=== PATIENT | male | born 2005 | race Caucasian/White ===

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

== ENCOUNTER 2024-06-18 11:17 | Outpatient (AMB) | payer OTHER, SELFPAY ==
--- NOTE | 2024-06-18 11:26 | A.OFFPC_ITS ---
Vital Signs 06/18/24 11:28 Height 5 ft 11 in Weight 179 lb 4 oz BMI 25.0 BP 114/66 Blood Pressure Location Rt brachial Position Sitting Respiration 12 Pulse 78 Pulse Source Pulse Oximeter Pulse Oximetry (%) 97 Oxygen Delivery Method Room Air Intake Visit Reasons: Annual pe Intake Note: annual physical Tennis Court Attendant Required: No Allergies No Known Allergies Allergy (Verified 06/18/24 11:50) Medication List - Last Reconciled 06/18/24 by Shadia Borrego, [facility]- citalopram 20 mg PO DAILY 90 days Tobacco use date assessed: 11/26/23 Dental Screening Dental Screen Date: 11/26/23 HPI HPI Comments History of Present Illness Details 19 y/o M with JOSE, MDD, ADHD, Cold james tamera asthma Social: living at home with family; drives, wears seat belt. Works with [employer] SurgHx: None FHx: Mom: Anxiety. Dad: Anxiety. Sister: Anxiety. SocHx: Nonsmoker. EtOH None. No drugs Health maintenance tdap 2015 Declined flu Here today for CPE Optho glasses, eye exam in the last year. Just got new Rx. Hearing normal w/o aides Diet - reports normal Exercise regular History of Present Illness The patient is a 19-year-old male presenting with a complete physical examination. The patient has a documented history of anxiety, depression, Attention Deficit Hyperactivity Disorder (ADHD), and asthma that is precipitated by cold exposure. The patient's anxiety and depression are well controlled On celexa. No counseling, does not feel its needed. Additionally, the patient experiences asthma triggered by cold exposure, stable. ADHD well controlled w/o meds. ROS Sexually active in the past; no concerns for STDs; does self testicular exam; no concerns. Edu provided No concerns w/ skin. General: Well developed, well nourished, in no acute distress. Appears stated age. Head: Normocephalic, atraumatic. Eyes: Pupils are equal, round and reactive to light and accommodation. Conjunctivae are clear. Vision grossly normal. Ears: TMs clear AU, EACS WNL Nose: Patent, without discharge. Mouth: There are no ulcers or lesions noted. No inflammation, no post nasal drip, no plaques nor exudates. Neck: Supple, no adenopathy or thyromegaly. Lungs: Clear to auscultation bilaterally. No rales, rhonchi or wheeze noted. Good air flow in all peters. Heart: Regular rate and rhythm. No murmurs, click, rubs or gallops are noted. Abdomen: Bowel sounds present in all quadrants. The abdomen is soft, nontender, with no masses or organomegaly noted. No hernias are noted. Musculoskeletal: Joints are nontender, without swelling, redness, or effusions. Range of motion is observed to be normal. Pulses: Peripheral pulses are equal and palpable bilaterally. Extremities: No clubbing, cyanosis nor edema is noted. Neurologic: Gait and station normal. Cranial Nerves 2-[address] rength grossly symmetrical and intact. No sensory loss. Balance normal. Skin: No rashes, ulcers, or lesions noted. Turgor is good. Skin color is good. Hair and nails are without abnormalities. Psych: Normal eye contact, affect and mood appropriate, and normal interactions. Patient is alert and appropriate to context. Patient was informed and verbally consented to the use of an ambient scribe for clinic note documentation during this visit. Plan: screening labs today RTO 1 year for CPE, sooner PRN PFSH Medical History (Updated 06/18/24 @ 15:33 by Shadia Borrego, [facility]) Asthma Surgical History (Updated 11/26/23 @ 15:10 by Phuong Flowers CMA) No pertinent past surgical history Family History (Updated 11/26/23 @ 15:11 by Phuong Flowers CMA) Father Mental health disorder Social History (Updated 11/26/23 @ 15:14 by Phuong Flowers CMA) Household Members: Family Both parents involved: Yes Caregiver staying overnight: No Housing: House Are you a primary critical care transport nurse to a significant other at home: No Do you presently have visiting nurse or other home services: No 75 years or older and lives alone: No Alcohol intake: never Patient Tobacco Use Status: Never used Tobacco Tobacco use type: Cigarette e-Cigarette/Vaping Use: Never Used Agree to transfusion: No service: No Current occupational status: employed Current occupation: works at [employer]. Cognitive needs: No Hearing needs: No Vision needs: No Questionnaire PHQ-9 Over the last 2 weeks, how often have you been bothered by any of the following problems? 1. Little interest or pleasure in doing things: not at all 2. Feeling down, depressed, or hopeless: not at all 3. Trouble falling or staying asleep, or sleeping too much: several days 4. Feeling tired or having little energy: more than half the days 5. Poor appetite or overeating: not at all 6. Feeling bad about yourself - or that you are a failure or have let yourself or your family down: not at all 7. Trouble concentrating on things, such as reading the newspaper or watching television: more than half the days 8. Moving or speaking so slowly that other people could have noticed. Or the opposite - being so fidgety or restless that you have been moving around a lot more than usual: more than half the days 9. Thoughts that you would be better off or of hurting yourself in some way: not at all Total score: 7 Depression Screening Interpretation: Positive Depression Screening Follow-up: Existing condition Depression Screening Done: Yes [id number] - PHQ-9 Billing: Yes Source: Developed by Drs. Giancarlo Emery, Marta Watson, Evangelist Schofield and colleagues, with an educational jacinda from [employer]. Thrive Questionnaire Date Thrive assessed: 06/18/24 I am a: Patient What is your living situation today?: I have a steady place to live Within the past 12 months, did the food you bought not last and you didn't have the money to get more?: Never true Within the past 12 months, did you worry whether your food would run out before you got money to buy more?: Never true Do you have trouble paying for medicines?: I choose not to answer this question Do you have trouble getting transportation to medical appointments?: No Do you have trouble paying your heating and electricity bill?: I choose not to answer this question Do you have trouble taking care of your child, family member or friend?: I choose not to answer this question Do you have trouble with day-to-day activities such as bathing, preparing meals, shopping, managing finances, etc.?: I choose not to answer this question Are you currently unemployed and looking for a job?: I choose not to answer this question Are you interested in more education?: I choose not to answer this question Please select the resources that you would like help with: None Currently or been in a relationship where the following occur: I choose not to answer THRIVE Score: 0 AUDIT C Alcohol Use Questionnaire (AUDIT-C) 1. How often do you have a drink containing alcohol?: Never Total Score: 0 Score Reviewed/Action Taken: Yes JOSE-7 AMB Questionnaire JOSE-7 Date JOSE - 7 assessed: 06/18/24 Feeling nervous, anxious, or on edge: 1 = Several days Not being able to stop or control worryin = Several days Worrying too much about different things: 1 = Several days Trouble relaxin = Several days Being so restless that it is hard to sit still: 1 = Several days Becoming easily annoyed or irritable: 1 = Several days Feeling afraid as if something awful might happen: 1 = Several days Total JOSE-7 score (0-4 normal; 5-9 mild; 10-14 moderate; 15-21 severe): 7 Source: Developed by Drs. Giancarlo Emery, Marta Watson, Evangelist Schofield and colleagues, with an educational jacinda from [employer]. JOSE-7 Assessment Billing JOSE-7 Assessment Tool: JOSE-7 Assessment 24780 Physical exam (Primary Care) Vital Signs: Last Vital Signs Pulse 78 06/18/24 11:28 Resp 12 06/18/24 11:28 BP 114/66 06/18/24 11:28 Pulse Ox 97 06/18/24 11:28 Oxygen Delivery Method Room Air 06/18/24 11:28 BMI result Body Mass Index 25.0 Tobacco/Smoking Status: Tobacco use Status Tobacco use date assessed 11/26/23 06/18/24 11:26 Patient Tobacco Use Status Never used Tobacco 06/18/24 11:26 Tobacco use type Cigarette 06/18/24 11:26 e-Cigarette/Vaping Use Never Used 06/18/24 11:26 PHQ-9: PHQ-9 Score PHQ-9: Total score 7 06/18/24 11:53 Depression Screening Interpretation: Positive Depression Screening Follow-up: Existing condition Thrive Assessment: Date of Thrive Assessment Date Thrive assessed 06/18/24 06/18/24 11:30 Currently or been in a relationship where the following occur: I choose not to answer Coding Level of Care Code Est Pt Prev Care 18-39y(34238) Diagnoses Encounter for general adult medical examination without abnormal findings Z00.00 Laboratory exam ordered as part of routine general medical examination Z00.00 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 J45.20 Asthma severity: mild Asthma persistence: intermittent Asthma complication type: uncomplicated Anxiety with depression F41.8 Attention deficit hyperactivity disorder (ADHD), combined type F90.2 Attention deficit-hyperactivity disorder type: combined inattentive- hyperactive Encounter for screening examination for sexually transmitted disease Z11.3 Additional Codes JOSE-7 Assessment Billing - JOSE-7 Assessment Tool: JOSE-7 Assessment 31025 ([id number]) PHQ-9 - 45614 - PHQ-9 Billing: Yes ([id number]) Assessment & Plan Assessment & Plan (1) Encounter for general adult medical examination without abnormal findings: Code(s): Z00.00 - Encounter for general adult medical examination without abnormal findings (2) Laboratory exam ordered as part of routine general medical examination: Code(s): Z00.00 - Encounter for general adult medical examination without abnormal findings Category: Medical (3) Cold-induced asthma: Code(s): J45.909 - Unspecified asthma, uncomplicated Category: Medical Qualifiers: Asthma severity: mild Asthma persistence: intermittent Asthma complication type: uncomplicated Qualified Code(s): J45.20 - Mild intermittent asthma, uncomplicated (4) Anxiety with depression: Code(s): F41.8 - Other specified anxiety disorders Category: Medical (5) ADHD: Code(s): F90.9 - Attention-deficit hyperactivity disorder, unspecified type Category: Medical Qualifiers: Attention deficit-hyperactivity disorder type: combined inattentive- hyperactive Qualified Code(s): F90.2 - Attention-deficit hyperactivity disorder, combined type (6) Encounter for screening examination for sexually transmitted disease: Code(s): Z11.3 - Encounter for screening for infections with a predominantly sexual mode of transmission Plan . Orders: Orders CT NG by PCR Today Z11.3 - Encounter for screening for infections with a predo minantly sexual mode of transmission UA and rflx microscopic Today Z00.00 - Encounter for general adult medical examination without abnormal findings Comprehensive Met. Panel Today Z00.00 - Encounter for general adult medical examination without abnormal findings Patient Instructions: Health screenings for men You should visit your health care provider regularly, even if you feel healthy. The purpose of these visits is to: Screen for medical issues Assess your risk for future medical problems Encourage a healthy lifestyle Update vaccinations and other preventive care services Help you get to know your provider in case of an illness Information Even if you feel fine, you should still see your provider for regular checkups. These visits can help you avoid problems in the future. For example, the only way to find out if you have high blood pressure is to have it checked regularly. High blood sugar and high cholesterol level also may not have any symptoms in the early stages. Simple blood tests can check for these conditions. There are specific times when you should see your provider or receive specific health screenings. The [place] Preventive Services Task Force publishes a list of recommended screenings. Below are screening guidelines for men ages 40 to 64. BLOOD PRESSURE SCREENING Have your blood pressure checked at least once every year. Watch for blood pressure screenings in your area. Ask your provider if you can stop in to have your blood pressure checked. Ask your provider if you need your blood pressure checked more often if: You have diabetes, heart disease, kidney problems, or are overweight or have certain other health conditions You have a first-degree relative with high blood pressure You are Black Your blood pressure top number is from 120 to 129 mm Hg, or the bottom number is from 70 to 79 mm Hg If the top number is 130 mm Hg or greater or the bottom number is 80 mm Hg or greater, this is considered stage 1 hypertension. Schedule an appointment with your provider to learn how you can lower your blood pressure. Effects of age on blood pressure CHOLESTEROL SCREENING Cholesterol screening should begin at age 35 for men with no known risk factors for coronary heart disease. Repeat cholesterol screening should take place: Every 5 years for men with normal cholesterol levels More often if changes occur in lifestyle (including weight gain and diet) More often if you have diabetes, heart disease, kidney problems, or certain other conditions COLORECTAL CANCER SCREENING If you are under age 45, talk to your provider about getting screened. You may need to be screened if you have a strong family history of colon cancer or polyps. Screening may also be considered if you have risk factors such as a history of inflammatory bowel disease or polyps. If you are age 45 to 75, you should be screened for colorectal cancer. There are several screening tests available: A stool-based fecal occult blood (gFOBT) or fecal immunochemical test (FIT) every year A stool sDNA test every 1 to 3 years Flexible sigmoidoscopy every 5 years or every 10 years with stool testing FIT done every year CT colonography (virtual colonoscopy) every 5 years Colonoscopy every 10 years You may need a colonoscopy more often if you have risk factors for colorectal cancer, such as: Ulcerative colitis A personal or family history of colorectal cancer A history of growths in your colon called adenomatous polyps DENTAL EXAM Go to the dentist once or twice every year for an exam and cleaning. Your dentist will evaluate if you have a need for more frequent visits. DIABETES SCREENING All adults who do not have risk factors for diabetes should be screened starting at age 35 and repeated every 3 years. If you have other risk factors for diabetes, such as a first degree relative with diabetes, overweight or obesity, high blood pressure, prediabetes, or a history of heart disease, you may be tested more often. If you are overweight and have other risk factors, such as high blood pressure and are planning to become , screening is recommended. EYE EXAM Have an eye exam every 2 to 4 years ages 40 to 54 and every 1 to 3 years ages 55 to 64. Your provider may recommend more frequent eye exams if you have vision problems or glaucoma risk. Have an eye exam that includes an examination of your retina (back of your eye) at least every year if you have diabetes. IMMUNIZATIONS Commonly needed vaccines include: Flu shot: get one every year COVID-19 vaccine: ask your provider what is best for you Tetanus-diphtheria and acellular pertussis (Tdap) vaccine: have as one of your tetanus-diphtheria vaccines if you did not receive it as an adolescent Tetanus-diphtheria: have a booster (or Tdap) every 10 years Varicella vaccine: receive 2 doses if you never had chickenpox or the varicella vaccine and were born in 1979 or after Hepatitis B vaccine: receive 2, 3, or 4 doses, depending on your exact circumstances, if you did not receive these as a child or adolescent, until age 59 Shingles (herpes zoster) vaccine: at or after age 50 Ask your provider if you should receive other immunizations, especially if you have certain medical conditions, such as diabetes or are at increased risk for some diseases such as pneumonia. INFECTIOUS DISEASE SCREENING Screening for hepatitis C: all adults ages 18 to 79 should get a one-time test for hepatitis C. Screening for human immunodeficiency virus (HIV): all people ages 15 to 65 should get a one-time test for HIV. Depending on your lifestyle and medical history, you may need to be screened for infections such as syphilis, chlamydia, and other infections. LUNG CANCER SCREENING You should have an annual screening for lung cancer with low-dose computed tomography (LDCT) if: You are age 50 to 80 years AND You have a 20 pack-year smoking history AND You currently smoke or have quit within the past 15 years OSTEOPOROSIS SCREENING If you are age 50 to 64 and have risk factors for osteoporosis, you should discuss screening with your provider. Risk factors can include long-term steroid use, low body weight, smoking, heavy alcohol use, having a fracture after age 50, or a family history of hip fracture or osteoporosis. Osteoporosis PHYSICAL EXAM All adults should visit their provider from time to time, even if they are healthy. The purpose of these visits is to: Screen for diseases Assess risk of future medical problems Encourage a healthy lifestyle Update vaccinations and other preventive care services Maintain a relationship with a provider in case of an illness Your height, weight, and body mass index (BMI) should be checked at every exam. During your exam, your provider may ask you about: Depression and anxiety Diet and exercise Alcohol and tobacco use Safety, such as use of seat belts and smoke detectors Your medicines and risk for interactions PROSTATE CANCER SCREENING If you're 55 through 69 years old, before having the test, talk to your provider about the pros and cons of having a PSA test. Ask about: Whether screening decreases your chance of dying from prostate cancer. Whether there is any harm from prostate cancer screening, such as side effects from testing or overtreatment of cancer when discovered. Whether you have a higher risk of prostate cancer than others. If you are age 55 or younger, screening is not generally recommended. You should talk with your provider about if you have a higher risk for prostate cancer. Risk factors include: Having a family history of prostate cancer (especially a brother or father) Being If you choose to be tested, the PSA blood test is repeated over time (yearly or less often), though the best frequency is not known. Prostate examinations are no longer routinely done on men with no symptoms. Prostate cancer SKIN EXAM Your provider may check your skin for signs of skin cancer, especially if you're at high risk. People at high risk include those who have had skin cancer before, have close relatives with skin cancer, or have a weakened immune system. TESTICULAR EXAM The [place] Preventive Services Task Force (USPSTF) now recommends against performing testicular self-exams. Doing testicular self-exams has been shown to have little to no benefit.
[2024-06-18 11:28] VITALS: BP 114/66; PULSE 78; RESP 12; O2SAT 97; BMI 25.0
== END 2024-06-18 12:05 | disposition home or self-care (01) ==
PROVIDERS: PCP Family Medicine; Visit Provider Nurse Practitioner Family
DX: Z00.00 Encounter for general adult medical examination without abnormal findings (principal); J45.20 Mild intermittent asthma, uncomplicated; F41.8 Other specified anxiety disorders; F90.2 Attention-deficit hyperactivity disorder, combined type; Z11.3 Encounter for screening for infections with a predominantly sexual mode of transmission

== ENCOUNTER 2024-06-18 11:17 | Outpatient (REF) | payer OTHER, SELFPAY ==
[2024-06-18 15:08] LABS: Appearance Urine Clear; Color Urine Yellow; Glucose Urine UA Negative (Negative); Leukocyte Esterase Urine Negative (Negative); Nitrite Urine Negative (Negative); Urine Blood Negative (Negative); Urine Ketones Negative (Negative); Urine Protein Negative (Neg-Trace)
[2024-06-18 21:52] LABS: CT PCR NOT DETECTED (Not Detect.); NG PCR NOT DETECTED (Not Detect.)
== END 2024-06-18 11:18 | disposition home or self-care (01) ==
LOC: HO.LAB 11:17
PROVIDERS: PCP Family Medicine; Visit Provider Nurse Practitioner Family
DX: Z00.00 Encounter for general adult medical examination without abnormal findings (principal); Z11.3 Encounter for screening for infections with a predominantly sexual mode of transmission; J45.20 Mild intermittent asthma, uncomplicated; F41.8 Other specified anxiety disorders; F90.2 Attention-deficit hyperactivity disorder, combined type
CPT/HCPCS: 81003; 87491; 87591; 96127; 99395

== ENCOUNTER 2024-06-26 08:58 | Outpatient (AMB) | payer OTHER, SELFPAY ==
--- NOTE | 2024-06-26 09:06 | A.OFFPC_ITS ---
Vital Signs 06/26/24 09:09 Height 5 ft 11 in Weight 180 lb BMI 25.1 BP 120/66 Blood Pressure Location Lt brachial Position Sitting Respiration 12 Pulse 81 Pulse Source Pulse Oximeter Temp 97.3 F Temp Source Oral Pulse Oximetry (%) 99 Oxygen Delivery Method Room Air Intake Visit Reasons: broken clavical f/u (wanted to be seen sooner) Intake Note: ER discharge follow up Hydrometeorological Technician Required: No Allergies No Known Allergies Allergy (Verified 06/26/24 09:51) Tobacco use date assessed: 06/26/24 Dental Screening Dental Screen Date: 11/26/23 HPI HPI Comments History of Present Illness Details History of Present Illness The patient is a 19-year-old male presenting with a mid shaft right clavicular fracture. The fracture occurred on June 23 after the patient had a fall while snowboarding. He was evaluated in the emergency room on June 23, where the fracture was diagnosed. At that time, the injury was deemed non- displaced, and surgical intervention was not required. He was discharged with his arm in a sling and advised to follow up with orthopedics. The patient reports persistent pain, which he describes as improving slightly, though it remains uncomfortable. Initial management included immobilization in a sling, and he was advised to limit arm movement to prevent displacement of the fracture. He has been adhering to these recommendations to the best of his ability but acknowledges occasional movement. He also mentions experiencing pain in the chest area, particularly in the early days following the injury, though this has since improved. Using OTC APAP and NSAIDS to help w/ pain, short lived relief. Exam Awake alert NAD Right arm neurovasc intact; pain over mid clavicle with palpation; no costocondral tenderness LS CTAB Results - X-ray: Confirmed non-displaced mid sha ft fracture of the right clavicle Plan - Refer to orthopedic for further evalua tion of right clavicle fracture. - Recommend walk-in clinic or formal orthopedic referral to [facility]. Go today. - Advise continuation of sling use to pr event displacement of the fracture. - Prescribe pain management medication w ithin NSAID family for pain relief. Patient was informed and verbally consented to the use of an ambient scribe for clinic note documentation during this visit. Discussion Notes During this visit, I discussed with the patient the nature of his mid shaft right clavicular fracture, emphasizing the importance of maintaining immobilization to prevent displacement. I offered him a prescription for pain management, specifying that while it is not ibuprofen, it is in the same family of medications, and clarified that he should not combine this with bngr-sll-htedsis ibuprofen. I recommended visiting a walk-in orthopedic clinic to expedite assessment and management. I provided the patient with an x-ray copy and explained that it would be advantageous for his orthopedic evaluation. We reviewed the necessity of continuity with a local orthopedic group for optimized care. I concluded by addressing any concerns and affirmed the potential for recovery without surgical intervention, advising consistent follow-up with orthopedics. Patient Instructions - Continue to use the sling to support y our right arm and prevent movement. - Avoid taking ibuprofen while using the prescribed pain medication. - Go to [facility]?s walk-in cli fernando for faster assessment. - Maintain follow-up appointments with o rthopedics as advised. - Monitor for any new symptoms or increa sed pain, and seek reevaluation if necessary. Total time spent caring for the patient today was 30 minutes. This includes time spent before the visit reviewing the chart, time spent during the visit, and time spent after the visit on documentation, reviewing laboratory results, diagnostic imaging, medications, performing a medically necessary evaluation, counseling on diagnoses, care coordination, ordering appropriate tests, ordering appropriate medications, review of tests performed by other providers, reporting test results with the patient, communication with other healthcare providers. [facility] Medical History (Updated 06/26/24 @ 11:24 by Shadia Borrego, [facility]) Asthma Surgical History (Updated 11/26/23 @ 15:10 by Phuong Flowers [facility]) No pertinent past surgical history Family History (Updated 11/26/23 @ 15:11 by Phuong Flowers CMA) Father Mental health disorder Social History (Updated 11/26/23 @ 15:14 by Phuong Flowers CMA) Household Members: Family Both parents involved: Yes Caregiver staying overnight: No Housing: House Are you a primary health care facility administrator to a significant other at home: No Do you presently have visiting nurse or other home services: No 75 years or older and lives alone: No Alcohol intake: never Patient Tobacco Use Status: Never used Tobacco Tobacco use type: Cigarette e-Cigarette/Vaping Use: Never Used Agree to transfusion: No service: No Current occupational status: employed Current occupation: works at [employer]. Cognitive needs: No Hearing needs: No Vision needs: No Questionnaire PHQ-9 Over the last 2 weeks, how often have you been bothered by any of the following problems? 44444 - PHQ-9 Billing: Patient declined-do not bill Source: Developed by Drs. Giancarlo Emery, Marta Watson, Evangelist Schofield and colleagues, with an educational jacinda from [employer]. Thrive Questionnaire Date Thrive assessed: 06/26/24 I am a: Patient What is your living situation today?: I have a steady place to live Within the past 12 months, did the food you bought not last and you didn't have the money to get more?: Never true Within the past 12 months, did you worry whether your food would run out before you got money to buy more?: Never true Do you have trouble paying for medicines?: I choose not to answer this question Do you have trouble getting transportation to medical appointments?: No Do you have trouble paying your heating and electricity bill?: I choose not to answer this question Do you have trouble taking care of your child, family member or friend?: I choose not to answer this question Do you have trouble with day-to-day activities such as bathing, preparing meals, shopping, managing finances, etc.?: I choose not to answer this question Are you currently unemployed and looking for a job?: I choose not to answer this question Are you interested in more education?: I choose not to answer this question Please select the resources that you would like help with: None Currently or been in a relationship where the following occur: I choose not to answer THRIVE Score: 0 JOSE-7 AMB Questionnaire JOSE-7 Date JOSE - 7 assessed: 06/18/24 Source: Developed by Drs. Giancarlo Emery, Marta Watson, Evangelist Schofield and colleagues, with an educational jacinda from [employer]. Physical exam (Primary Care) Vital Signs: Last Vital Signs Temp 97.3 F 06/26/24 09:09 Pulse 81 06/26/24 09:09 Resp 12 06/26/24 09:09 BP 120/66 06/26/24 09:09 Pulse Ox 99 06/26/24 09:09 Oxygen Delivery Method Room Air 06/26/24 09:09 BMI result Body Mass Index 25.1 Tobacco/Smoking Status: Tobacco use Status Tobacco use date assessed 06/26/24 06/26/24 09:08 Patient Tobacco Use Status Never used Tobacco 06/26/24 09:08 Tobacco use type Cigarette 06/26/24 09:08 e-Cigarette/Vaping Use Never Used 06/26/24 09:08 Thrive Assessment: Date of Thrive Assessment Date Thrive assessed 06/26/24 06/26/24 09:08 Currently or been in a relationship where the following occur: I choose not to answer Coding Level of Care Code Est Pt Level 4 (46021) Complex EM visit Add On G2211 Diagnoses Hospital discharge follow-up Z09 Closed nondisplaced fracture of shaft of right clavicle, initial encounter S42.024A Encounter type: initial encounter Fracture alignment: nondisplaced Fracture type: closed Clavicle location: shaft Assessment & Plan Assessment & Plan (1) Hospital discharge follow-up: Code(s): Z09 - Encounter for follow-up examination after completed treatment for conditions other than malignant neoplasm (2) Right clavicle fracture: Code(s): S42.001A - Fracture of unspecified part of right clavicle, initial encounter for closed fracture Category: Medical Qualifiers: Encounter type: initial encounter Fracture alignment: nondisplaced Fracture type: closed Clavicle location: shaft Qualified Code(s): S42.024A - Nondisplaced fracture of shaft of right clavicle, initial encounter for closed fracture Plan . Orders: Referrals Orthopedics Referral S42.001A - Fracture of unspecified part of right clavicle, initial encounter for closed fracture Medications: New diclofenac potassium 25 mg PO BID 60 tabs 0RF
[2024-06-26 09:09] VITALS: BP 120/66; PULSE 81; RESP 12; TEMP 36.3; O2SAT 99; BMI 25.1
== END 2024-06-26 09:57 | disposition home or self-care (01) ==
PROVIDERS: PCP Family Medicine; Visit Provider Nurse Practitioner Family
DX: Z09 Encounter for follow-up examination after completed treatment for conditions other than malignant neoplasm (principal); S42.024A Nondisplaced fracture of shaft of right clavicle, initial encounter for closed fracture

== ENCOUNTER → 2024-06-26 08:58 | Outpatient (BNVA) | payer OTHER, SELFPAY | PROVIDERS: PCP Family Medicine; Visit Provider Nurse Practitioner Family | DX: Z09 Encounter for follow-up examination after completed treatment for conditions other than malignant neoplasm (principal); S42.024D Nondisplaced fracture of shaft of right clavicle, subsequent encounter for fracture with routine healing | CPT/HCPCS: 99212 ==

== ENCOUNTER 2024-10-08 10:20 | Outpatient (AMB) | payer OTHER, SELFPAY ==
--- NOTE | 2024-10-08 10:25 | MHC.PC.OV ---
Vital Signs 10/08/24 10:28 Height 5 ft 11 in Weight 180 lb BMI 25.1 BP 112/66 Blood Pressure Location Rt brachial Position Sitting Respiration 12 Pulse 61 Pulse Source Pulse Oximeter Temp 97.3 F Temp Source Oral Pulse Oximetry (%) 98 Oxygen Delivery Method Room Air Intake Visit Reasons: Med Management Intake Note: Follow up med review System Architect Required: No Allergies No Known Allergies Allergy (Verified 10/08/24 10:57) Medication List - Last Reconciled 10/08/24 by SMITHA Johnson- citalopram 20 mg PO DAILY 90 days diclofenac potassium 25 mg PO BID Tobacco use date assessed: 10/08/24 Dental Screening Dental Screen Date: 10/08/24 Did you have a dental visit in the last 12 months?: Yes Did you have a dental problem in the last 6 months where you did not have access to dental care?: No Was dental information given to patient?: Patient has dentist HPI HPI Comments History of Present Illness Details History of Present Illness - The patient is a 19-year-old male presenting with anxiety and irritability. - Previously, the patient had been on Citalopram for nine months but stopped suddenly, citing irritability as a side effect. No significant anxiety or depressive symptoms were evident during the medication period. - The patient mentioned a slight return of anxiety post discontinuation of the medication. - He denies any depressive symptoms or suicidal ideation following cessation of Citalopram. s/p clavicular fracture, s/p PT. Cont w daily pain, taking diclofenac prn + effect Physical Exam General: Well developed, well nourished, in no acute distress. Appears stated age. Head: Normocephalic, atraumatic. Eyes: Pupils are equal, round and reactive to light and accommodation. Conjunctivae are clear. Vision grossly normal. Psych: Mood and affect appropriate Discussion Notes In our discussion, I highlighted the resurgence of mild anxiety following the cessation of Citalopram and explained the treatment options available. I recommended switching to Buspirone, discussing its efficacy in managing anxiety with a potentially lower adverse effect profile, particularly concerning sexual side effects. I explained Buspirone's mechanism, emphasizing its suitability for managing anxiety and irritability while detailing the absence of a significant impact on depressive symptoms. Additionally, I instructed the patient on the administration of Buspirone and potential side effects. I also reviewed scheduling a follow-up consultation in six weeks to monitor treatment effectiveness and possible side effects, ensuring the patient is informed and comfortable with the management approach. Assessment and Plan 1. Anxiety The patient will start on Buspirone, beginning with 5 mg, with instructions to monitor for headaches or stomach issues. Dosage adjustments are anticipated based on effectiveness in reducing anxiety. Follow-up in six weeks is planned to evaluate treatment progress. ok to cont diclofenac for clavicular pain Patient Instructions - Start taking Buspirone, beginning with 5 mg once a day. Ok to increase to 10mg QD after 1 week - Monitor for any side effects such as headaches or stomach issues. - Return in six weeks for follow-up to discuss treatment effectiveness. - Reach out if any new or worsening symptoms occur. Crisis info provided. Consent Patient was informed and verbally consented to the use of an ambient scribe for clinic note documentation during this visit. Total time spent caring for the patient today was 30 minutes. This includes time spent before the visit reviewing the chart, time spent during the visit, and time spent after the visit on documentation, reviewing laboratory results, diagnostic imaging, medications, performing a medically necessary evaluation, counseling on diagnoses, care coordination, ordering appropriate tests, ordering appropriate medications, review of tests performed by other providers, reporting test results with the patient, communication with other healthcare providers. [facility] Medical History (Updated 10/08/24 @ 07:31 by Shadia Borrego, [facility]) Asthma Surgical History (Updated 11/26/23 @ 15:10 by Phuong Flowers CMA) No pertinent past surgical history Family History (Updated 11/26/23 @ 15:11 by Phuong Flowers CMA) Father Mental health disorder Social History (Updated 11/26/23 @ 15:14 by Phuong Flowers CMA) Household Members: Family Both parents involved: Yes Caregiver staying overnight: No Housing: House Are you a primary client care manager to a significant other at home: No Do you presently have visiting nurse or other home services: No 75 years or older and lives alone: No Alcohol intake: never Patient Tobacco Use Status: Never used Tobacco Tobacco use type: Cigarette e-Cigarette/Vaping Use: Never Used Agree to transfusion: No service: No Current occupational status: employed Current occupation: works at [employer]. Cognitive needs: No Hearing needs: No Vision needs: No Questionnaire PHQ-9 Over the last 2 weeks, how often have you been bothered by any of the following problems? 1. Little interest or pleasure in doing things: not at all 2. Feeling down, depressed, or hopeless: not at all 3. Trouble falling or staying asleep, or sleeping too much: not at all 4. Feeling tired or having little energy: not at all 5. Poor appetite or overeating: not at all 6. Feeling bad about yourself - or that you are a failure or have let yourself or your family down: not at all 7. Trouble concentrating on things, such as reading the newspaper or watching television: not at all 8. Moving or speaking so slowly that other people could have noticed. Or the opposite - being so fidgety or restless that you have been moving around a lot more than usual: not at all 9. Thoughts that you would be better off or of hurting yourself in some way: not at all Total score: 0 Depression Screening Interpretation: Negative Depression Screening Done: Yes 15368 - PHQ-9 Billing: Yes Source: Developed by Drs. Giancarlo Emery, Marta Watson, Evangelist Schofield and colleagues, with an educational jacinda from [employer]. Thrive Questionnaire Date Thrive assessed: 10/08/24 I am a: Patient What is your living situation today?: I have a steady place to live Within the past 12 months, did the food you bought not last and you didn't have the money to get more?: Never true Within the past 12 months, did you worry whether your food would run out before you got money to buy more?: Never true Do you have trouble paying for medicines?: I choose not to answer this question Do you have trouble getting transportation to medical appointments?: No Do you have trouble paying your heating and electricity bill?: I choose not to answer this question Do you have trouble taking care of your child, family member or friend?: I choose not to answer this question Do you have trouble with day-to-day activities such as bathing, preparing meals, shopping, managing finances, etc.?: I choose not to answer this question Are you currently unemployed and looking for a job?: I choose not to answer this question Are you interested in more education?: I choose not to answer this question Please select the resources that you would like help with: None Currently or been in a relationship where the following occur: I choose not to answer THRIVE Score: 0 AUDIT C Alcohol Use Questionnaire (AUDIT-C) 1. How often do you have a drink containing alcohol?: Never 3. How often do you have six or more drinks on one occasion?: Never Total Score: 0 JOSE-7 AMB Questionnaire JOSE-7 Date JOSE - 7 assessed: 10/08/24 Feeling nervous, anxious, or on edge: 0 = Not at all Not being able to stop or control worryin = Not at all Worrying too much about different things: 0 = Not at all Trouble relaxin = Not at all Being so restless that it is hard to sit still: 0 = Not at all Becoming easily annoyed or irritable: 0 = Not at all Feeling afraid as if something awful might happen: 0 = Not at all Total JOSE-7 score (0-4 normal; 5-9 mild; 10-14 moderate; 15-21 severe): 0 Source: Developed by Drs. Giancarlo Emery, Marta Watson, Evangelist Schofield and colleagues, with an educational jacinda from [employer]. JOSE-7 Assessment Billing JOSE-7 Assessment Tool: JOSE-7 Assessment 94365 Physical exam (Primary Care) Vital Signs: Last Vital Signs Temp 97.3 F 10/08/24 10:28 Pulse 61 10/08/24 10:28 Resp 12 10/08/24 10:28 BP 112/66 10/08/24 10:28 Pulse Ox 98 10/08/24 10:28 Oxygen Delivery Method Room Air 10/08/24 10:28 BMI result Body Mass Index 25.1 Tobacco/Smoking Status: Tobacco use Status Tobacco use date assessed 10/08/24 10/08/24 10:30 Patient Tobacco Use Status Never used Tobacco 10/08/24 10:30 Tobacco use type Cigarette 10/08/24 10:30 e-Cigarette/Vaping Use Never Used 10/08/24 10:30 PHQ-9: PHQ-9 Score PHQ-9: Total score 0 10/08/24 11:06 Depression Screening Interpretation: Negative Thrive Assessment: Date of Thrive Assessment Date Thrive assessed 10/08/24 10/08/24 10:30 Currently or been in a relationship where the following occur: I choose not to answer Coding Level of Care Code Est Pt Level 4 (47154) Complex EM visit Add On G2211 Diagnoses Anxiety with depression F41.8 Closed nondisplaced fracture of shaft of right clavicle, initial encounter S42.024A Encounter type: initial encounter Clavicle location: shaft Fracture type: closed Fracture alignment: nondisplaced Additional Codes JOSE-7 Assessment Billing - JOSE-7 Assessment Tool: JOSE-7 Assessment 95989 ([id number]) PHQ-9 - 59177 - PHQ-9 Billing: Yes ([id number]) Assessment & Plan Assessment & Plan (1) Anxiety with depression: Code(s): F41.8 - Other specified anxiety disorders Category: Medical (2) Right clavicle fracture: Code(s): S42.001A - Fracture of unspecified part of right clavicle, initial encounter for closed fracture Category: Medical Qualifiers: Encounter type: initial encounter Clavicle location: shaft Fracture type: closed Fracture alignment: nondisplaced Qualified Code(s): S42.024A - Nondisplaced fracture of shaft of right clavicle, initial encounter for closed fracture Plan . Medications: New buspirone 10 mg PO DAILY 30 tabs 1RF Discontinued citalopram Discontinued Reason: Patient Completed Course 20 mg PO DAILY 90 days 90 tabs 2RF Patient Instructions: National Suicide and Crisis Lifeline: Available 24 hours a day, 7 days a week, 365 days a year Dial 988 with any telephone to speak to someone [facility] (Mental / Behavioral health therapist: [address] [place] [address] [facility] ([facility]) at [facility]: [address] [place] [address] Open from 10am - 12pm (walk ins welcome) [facility] Crisis Services: [address] [place] [address] Walk in hours from 10am - 12pm Behavioral health Network: [address] [place] [phone] [place] [phone] Sunday through Sunday 8am - 8pm Sunday and Sunday 9am - 5pm Crisis Hotlines Suicide prevention, domestic violence, and other crisis hotlines for youth, young adults, and their friends and families. [facility] Safeline: The [facility] Safeline helps youth who have run away, are thinking about running away, or who already ran away but are ready to come home. Parents and guardians can also contact the hotline if they are worried about their child running away or if their child has already left home. The hotline is available 24 hours a day, seven days a week. Youth, parents, and guardians can also use the online chat feature on the [facility]'s website to ask for help and get support, [place] [address]. [facility] National Suicide Prevention Lifeline: The [place] Suicide Prevention Lifeline is a network of local crisis centers that are available 25/12 to provide support for youth and adults who are in any kind of emotional crisis. In addition to the main hotline number listed above, there are several other numbers to call depending on your needs: Thai Language: Deaf and Hard of [phone] Veterans: Disaster Distress: Anyone can also use their online chat feature on their website. [facility] Suicide Prevention [facility]eline [facility] Helpline: The [facility] Helpline is available to anyone in [place] who is need of emotional support. Anyone can call or text the helpline to receive help from specially trained volunteers. [place] high school and college students can also get online support through the [employer]_ program. For high school students, volunteers ages 15-18 are available Sunday- from 6-9PM. For college students, [employer]_ is available Sunday-Sunday from 5-9PM. The Johan Project - The Johan Project is a 25/12 crisis intervention and suicide prevention hotline for LGBTQ youth. Youth can also text Johan to for support, or use the online chat feature on the [employer] Project's website. [employer] is available Sunday-Sunday between 3-10PM. [employer] is available seven days a week between 3-10PM. SafeLink: SafeLink is for anyone who is being affected by domestic violence or dating violence. Volunteers at [employer] speak Bengali and Thai, and [employer] also has a service that can provide translation in more than 130 languages. TTY:
[2024-10-08 10:28] VITALS: BP 112/66; PULSE 61; RESP 12; TEMP 36.3; O2SAT 98; BMI 25.1
--- OUTSIDE RECORDS SUMMARY | 2024-10-08 11:37 | XMS_ITS | Encounter Summary ---
Author Organization [facility] Address [address] [place] [phone] Phone Care Team Providers Care Riveter Name Role Phone Unavailable Primary Care Provider Unavailabl e Encounter Details Date Type Department Care Team (Late st Contact Info) Description 05/09/2011 Documentation [facility] [place] [address] Family Medicine, Phys[place] [facility] [place], [place] [id number] Social History Tobacco Use Types Packs/Day Years Used Date Smoking Tobacco: Never Assessed Sex and Gender Information Value Date Recorded Sex Assigned at Not on file Legal Sex Male 5:00 PM EDT Gender Identity Male 01/22/2020 4:00 PM EDT Sexual Orientation Not on file documented as of this encounter Plan of Treatment Not on file documented as of this encounter Visit Diagnoses Not on filedocumented in this encounter
--- OUTSIDE RECORDS SUMMARY | 2024-10-08 11:37 | XMS_ITS | Clinical Summary ---
Author Organization [facility] Address [address] [place] [address] Care Team Providers Care Energy Economist Name Role Phone Unavailable Primary Care Provider Unavailabl e Source Comments Please note that some or all of the patient's information could have additional privacy protections. State laws allow health care providers to render certain types of treatment to minors without parental consent. Please do not assume that this information can be shared solely by obtaining just the consent of the patient's parent/guardian. Please determine if all or part of the patient's care was rendered without parent/guardian involvement. And, if so, obtain the minor's consent prior to disclosure.[facility] Social History Tobacco Use Types Packs/Day Years Used Date Smoking Tobacco: Never Assessed Sex and Gender Information Value Date Recorded Sex Assigned at Not on file Legal Sex Male 2:11 PM EDT Gender Identity Not on file Sexual Orientation Not on file Plan of Treatment Not on file Insurance [facility]
--- OUTSIDE RECORDS SUMMARY | 2024-10-08 11:37 | XMS_ITS | Encounter Summary ---
Author Organization [facility] Address [address] [place] [address] Phone Care Team Providers Care Warehouse Shipper Name Role Phone Unavailable Primary Care Provider Unavailabl e Encounter Details Date Type Department Care Team (Late st Contact Info) Description 10/16/2009 Documentation [facility] [place] [address] Family Medicine, Physician [facility] [place] [id number] Social History Tobacco Use Types Packs/Day Years [...]
--- OUTSIDE RECORDS SUMMARY | 2024-10-08 11:37 | XMS_ITS | Encounter Summary ---
Author Organization [facility] Address [address] [place] [address] Phone Care Team Providers Care Camouflage Specialist Name Role Phone Unavailable Primary Care Provider Unavailabl e Encounter Details Date Type Department Care Team (Late st Contact Info) Description 12/14/2011 Documentation [facility] [place] [address] Family Medicine, Physician [facility] [place], [place] [id number] Social History Tobacco Use Types Packs/Day Years [...]
--- OUTSIDE RECORDS SUMMARY | 2024-10-08 11:37 | XMS_ITS | Encounter Summary ---
Author Organization [facility] Address [address] [place] [address] Phone Care Team Providers Care Motion Picture Operator Name Role Phone Unavailable Primary Care Provider Unavailabl e Encounter Details Date Type Department Care Team (Late st Contact Info) Description 05/29/2012 Documentation [facility] Family Medicine [facility] [place] [address] Family Medicine, Physician [facility] [place], [place] [id number] Social History Tobacco Use Types Packs/Day Years [...]
--- OUTSIDE RECORDS SUMMARY | 2024-10-08 11:37 | XMS_ITS | Encounter Summary ---
Author Organization [facility] Address [address] [place] [address] Phone Care Team Providers Care Information Technology Associate Name Role Phone Unavailable Primary Care Provider Unavailabl e Encounter Details Date Type Department Care Team (Late st Contact Info) Description 08/09/2016 Documentation [facility] [place] [address] Family Medicine, Physician [facility] [place], [place] [phone] Social History Tobacco Use Types Packs/Day Years [...]
--- OUTSIDE RECORDS SUMMARY | 2024-10-08 11:37 | XMS_ITS | Encounter Summary ---
Author Organization [facility] Address [address] [place] [address] Phone Care Team Providers Care Multiple Cut Off Saw Operator Name Role Phone Unavailable Primary Care Provider Unavailabl e Encounter Details Date Type Department Care Team (Late st Contact Info) Description 11/06/2016 Documentation [facility] [place] [address] Family Medicine, Physician [facility] [place], [place] [id number] Social History Tobacco Use Types Packs/Day Years [...]
--- OUTSIDE RECORDS SUMMARY | 2024-10-08 11:37 | XMS_ITS | Encounter Summary ---
Author Organization [facility] Address [address] [place] [address] Phone Care Team Providers Care Science Education Professor Name Role Phone Unavailable Primary Care Provider Unavailabl e Encounter Details Date Type Department Care Team (Late st Contact Info) Description 09/30/2012 Documentation [facility] [place] [address] Family Medicine, Physician [facility] [place], [place] [address] Social History Tobacco Use Types Packs/Day Years [...]
--- OUTSIDE RECORDS SUMMARY | 2024-10-08 11:37 | XMS_ITS | Encounter Summary ---
Author Organization [facility] Address [address] [place] [address] Phone Care Team Providers Care State Trooper Name Role Phone Unavailable Primary Care Provider Unavailabl e Reason for Visit * Reason Comments Med Refill Encounter Details Date Type Department Care Team (Late st Contact Info) Description 05/12/2021 Refill [facility] [address] [place] [address] Riya Alfred MD [address] [place] [address] Anxiety Social History Tobacco Use Types Packs/Day Years Used Date Smoking Tobacco: Never Smokeless Tobacco: Never Alcohol Use Standard Drinks/Week Comments Never 0 (1 standard drink = 0.6 oz pur e alcohol) Hunger/Food Answer Date Recorded In the last 12 months, did y ou or your family ever eat less than you felt you should because there wasn't enough money for food? No 08/12/2020 Stable Housing Answer Date Recorded Are you worried that in the next 2 months you may not have stable housing? No 08/12/2020 Transportation Concerns Answer Date Rec orded In the last 12 months, have you or your family ever had to go without healthcare because you didn't have a way to get there? No 08/12/2020 Hazards in Home Answer Date Recorded Think about the place you li ve. Do you have problems with any of the following? Pests (mice or roaches), mold, no/not working smoke detectors, water leaks, no window guards. No 2020 Financing Utilities Answer Date Recorde d In the last 12 months, has t he electric, gas, oil, or water company threatened to shut off your services in your home? No 08/12/2020 Safety at Home Answer Date Recorded Are you or your family worried about feeling saf e in your home? No 08/12/2020 Outside Support Answer Date Recorded Do you feel that you need mo re support from other people or programs to help you care for yourself or your family? No 08/12/2020 Understanding Health Concerns Answer Da te Recorded Do you need help understandi ng your or your child's healthcare needs (diagnosis, medications, plan, etc.)? No 08/12/2020 Financing Health Concerns Answer Date R ecorded In the last 12 months, was t here a time when your child needed to see a doctor or get medications or supplies but could not because of cost? No 08/12/2020 Missing School or Work Answer Date Quintin rded Did you or your child miss s chool or work because of a health problem that could have been avoided? No 08/12/2020 Sex and Gender Information Value Date Recorded Sex Assigned at Not on file Legal Sex Male 5:00 PM EDT Gender Identity Male 01/22/2020 4:00 PM EDT Sexual Orientation Not on file documented as of this encounter Miscellaneous Notes * Telephone Encounter - Nga Willson MD - 05/13/2021 8:42 AM EST Rx reviewed and e-prescribed to pharmacy. * Telephone Encounter - Dora Garcia LPN - 05/12/2021 9:44 AM EST Faxed refill request / last office visit 02/09/21 - no pending appts documented in this encounter Plan of Treatment Not on file documented as of this encounter Visit Diagnoses Diagnosis Anxiety Anxiety state, unspecified documented in this encounter
--- OUTSIDE RECORDS SUMMARY | 2024-10-08 11:37 | XMS_ITS | Encounter Summary ---
Author Organization [facility] Address [address] [place] [address] Phone Care Team Providers Care Multi Share Program Coordinator Name Role Phone Unavailable Primary Care Provider Unavailabl e Encounter Details Date Type Department Care Team (Late st Contact Info) Description 06/07/2012 Documentation [facility] [place] [address] Family Medicine, Physician [facility] [place], [place] [address] Social History Tobacco Use Types Packs/Day Years [...]
--- OUTSIDE RECORDS SUMMARY | 2024-10-08 11:37 | XMS_ITS | Encounter Summary ---
Author Organization [facility] Address [address] [place] [address] Phone Care Team Providers Care Cement Truck Driver Name Role Phone Unavailable Primary Care Provider Unavailabl e Encounter Details Date Type Department Care Team (Late st Contact Info) Description 12/15/2011 Documentation [facility] [place] [address] Family Medicine, Physician [facility] [place], [place] [address] Social History Tobacco Use Types Packs/Day Years [...]
--- OUTSIDE RECORDS SUMMARY | 2024-10-08 11:37 | XMS_ITS | Encounter Summary ---
Author Organization [facility] Address [address] [place] [address] Phone Care Team Providers Care Door Puller Name Role Phone Unavailable Primary Care Provider Unavailabl e Encounter Details Date Type Department Care Team (Late st Contact Info) Description 04/04/2012 Documentation [facility] [place] [address] Family Medicine, Physician [facility] [place], [place] [address]591 Social History Tobacco Use Types Packs/Day Years [...]
--- OUTSIDE RECORDS SUMMARY | 2024-10-08 11:37 | XMS_ITS | Encounter Summary ---
Author Organization [facility] Address [address] [place] [address] Phone Care Team Providers Care Musculoskeletal Physician Name Role Phone Unavailable Primary Care Provider Unavailabl e Encounter Details Date Type Department Care Team (Late st Contact Info) Description 12/27/2015 Documentation [facility] [place] [address] Family Medicine, Physician [facility] [place], [place] [address]131 Social History Tobacco Use Types Packs/Day Years [...]
--- OUTSIDE RECORDS SUMMARY | 2024-10-08 11:37 | XMS_ITS | Encounter Summary ---
Author Organization [facility] Address [address] [place] [address] Phone Care Team Providers Care Trade Marker Name Role Phone Unavailable Primary Care Provider Unavailabl e Encounter Details Date Type Department Care Team (Late st Contact Info) Description 05/11/2015 Documentation [facility] Family Medicine [facility] [place] [address] Family Medicine, Physician [facility] [place], [place] 6[address]331 Social History Tobacco Use Types Packs/Day Years [...]
--- OUTSIDE RECORDS SUMMARY | 2024-10-08 11:37 | XMS_ITS | Encounter Summary ---
Author Organization [facility] Address [address] [place] [address] Phone Care Team Providers Care Claims Collector Name Role Phone Unavailable Primary Care Provider Unavailabl e Encounter Details Date Type Department Care Team (Late st Contact Info) Description 12/12/2011 Documentation [facility] [place] [address] Family Medicine, Physician [facility] [place], [place] 725851 Social History Tobacco Use Types Packs/Day Years [...]
--- OUTSIDE RECORDS SUMMARY | 2024-10-08 11:37 | XMS_ITS | Encounter Summary ---
Author Organization [facility] Address [address] [place] [address] Phone Care Team Providers Care Campus Coordinator Name Role Phone Unavailable Primary Care Provider Unavailabl e Encounter Details Date Type Department Care Team (Late st Contact Info) Description 08/04/2011 Documentation [facility] [place] [address] Family Medicine, Physician [facility] [place] [phone] Social History Tobacco Use Types Packs/Day Years [...]
--- OUTSIDE RECORDS SUMMARY | 2024-10-08 11:37 | XMS_ITS | Encounter Summary ---
Author Organization [facility] Address [address] [place] [address] Phone Care Team Providers Care Cartoon Designer Name Role Phone Unavailable Primary Care Provider Unavailabl e Encounter Details Date Type Department Care Team (Late st Contact Info) Description 08/09/2016 Documentation [facility] [place] [address] Family Medicine, Physician [facility] [place], [place] [address]471 Social History Tobacco Use Types Packs/Day Years [...]
--- OUTSIDE RECORDS SUMMARY | 2024-10-08 11:37 | XMS_ITS | Encounter Summary ---
Author Organization [facility] Address [address] [place] [address] Phone Care Team Providers Care Carpenter Helper Name Role Phone Unavailable Primary Care Provider Unavailabl e Encounter Details Date Type Department Care Team (Late st Contact Info) Description 08/09/2016 Documentation [facility] [place] [address] Family Medicine, Physician [facility] [place], [place] 6496[address] Social History Tobacco Use Types Packs/Day Years [...]
--- OUTSIDE RECORDS SUMMARY | 2024-10-08 11:37 | XMS_ITS | Encounter Summary ---
Author Organization [facility] Address [address] [place] [address] Phone Care Team Providers Care Environmental Services Director Name Role Phone Unavailable Primary Care Provider Unavailabl e Encounter Details Date Type Department Care Team (Late st Contact Info) Description 11/28/2011 Documentation [facility] [place] [address] Family Medicine, Physician [facility] [place], [place] [address]44901 Social History Tobacco Use Types Packs/Day Years [...]
--- OUTSIDE RECORDS SUMMARY | 2024-10-08 11:37 | XMS_ITS | Encounter Summary ---
Author Organization [facility] Address [address] [place] [address] Phone Care Team Providers Care Machine Driller Name Role Phone Unavailable Primary Care Provider Unavailabl e Encounter Details Date Type Department Care Team (Late st Contact Info) Description 08/18/2016 Documentation [facility] Family Medicine [facility] [place] [address] Family Medicine, Physician [facility] [place], [place] 499721 Social History Tobacco Use Types Packs/Day Years [...]
--- OUTSIDE RECORDS SUMMARY | 2024-10-08 11:38 | XMS_ITS | Encounter Summary ---
Author Organization [facility] Address [address] [facility] [address] [place] [address] Care Team Providers Care Hvac Estimator Name Role Phone Unavailable Primary Care Provider Unavailabl e Encounter Details Date Type Department Care Team (Latest Contact Info) Description 03/29/2022 Abstract [facility] CONVERSIONS Dental, Provider, DDS Social History Tobacco Use Types Packs/Day Years Used Date Smoking Tobacco: Never Assessed Sex and Gender Information Value Date Recorded Sex Assigned at Male 04/03/2022 10:35 AM EDT Legal Sex Male 10:35 AM EDT Gender Identity Male 04/03/2022 10:35 AM EDT Sexual Orientation Straight 04/03/2022 10 :35 AM EDT documented as of this encounter Plan of Treatment Not on file documented as of this encounter Visit Diagnoses Not on filedocumented in this encounter
--- OUTSIDE RECORDS SUMMARY | 2024-10-08 11:38 | XMS_ITS | Clinical Summary ---
Author Organization [facility] Address [address] [place] [address] Phone Care Team Providers Care Chief Wellness Officer Name Role Phone Unavailable Primary Care Provider Unavailabl e Allergies Active Allergy Reactions Criticality Noted Date Comments Dust Mite Extract Cough,Runny nose 01/22/2020 Medications citalopram 10 MG tabletIndications :Anxiety Take 0.5 tablets (5 mg total) by mouth every morning. 30 tablet 1 2 Active Additional Information Patient not taking.Reported on 03/30/2023 Acetaminophen Extra Strength 500 MG tablet Take 500 mg by mouth every 6 (six) hours as needed. 2 Active albuterol HFA 108 (90 Base) MCG/ACT inhalerIndication s:Pneumonitis Inhale 2 puffs every 4 (four) hours as needed for wheezing. 1 Units 3 Active citalopram (CeleXA) 10 MG tabletIndications :Anxiety Take 1 tablet (10 mg total) by mouth every morning. 30 tablet 1 3 Active methylphenidate 27 MG CR tabletIndications :Attention deficit hyperactivity disorder (ADHD), combined type Take 1 tablet (27 mg total) by mouth every morning. 30 tablet 3 Active Active Problems Problem Noted Date Diagnosed Date OCD (obsessive compulsive disorder) 06/28/2018 Overview (08/12/2020): Seen by [facility], Dr. Olivares. Started on Sertraline September 2017 and switched to Citalopram November 2017 - has been stable on this med Constitutional delay of growth and development 0 06/07/2018 Overview (08/14/2019): Seen by Endocrine 2018. Bone age younger than actual age. No concerns. Started Testosterone injections early 2018 - had 3 injections. Has been discharged Attention deficit hyperactiv ity disorder (ADHD), combined type 12/28/2017 Overview (08/02/2018): Trial of Concerta 18 mg started in December [address] Olivares at [facility] (telepsych). Increased to Concerta 27 mg in March 2018 with good results. Anxiety 09/11/2017 Overview (08/02/2018): Seen by Telepsych in September 2017 - started on Sertraline then switched to Citalopram November 2017 with good results Sleep difficulties 09/11/2017 Overview (08/14/2019): Melatonin recommended after telepsych meeting September 2017 - changed to magnesium and lavender Mild intermittent asthma without complication Overview (08/14/2019): Using QVAR 2 puffs BID, Albuterol prn - with colds and occ with exertion Resolved Problems Problem Noted Date Diagnosed Date Resolved Date Need for case management follow-up 08/12/2020 04/02/2023 Overview (08/12/2020): STD screen not done due to national shortage of tests Immunizations Immunization Administration Dates Next Due DTaP / Hep B / IPV 2004,2004, 004 DTaP 5 01/24/2008,07/10/2005 HPV Vaccine 9 Valent 08/02/2018,05/18/2017 Hep A, ped/adol 03/17/2016,03/27/2014 Hep B, ped/adol 2004 Hib (HbOC) 04/14/2005,2004,2004 Hib (PRP-T) 2004 IPV 01/24/2008 Influenza Split 03/08/2012,03/07/2011,01/28/2010 Influenza, injectable, quadrivalent 03/17/2016 Influenza, injectable, quadr ivalent, preservative free 08/31/2021,01/27/2020,02/11/2019,06/14,05/18/2017,03/27/2014 Influenza, injectable, trivalent 008,03/20/2007,04/02/2006,04/14 MMR 01/24/2008,01/06/2005 Meningococcal Conj (Menactra) MCV4P 05/19/2020,1 Pneumococcal Conjugate 04/14/2005,2004,2004,04/19 Tdap 03/17/2016 Varicella 01/24/2008,01/06/2005 Family History Relation Name Status Comments Father Jamarcus Alive Father: Alive a nd well Maternal Grandfather Materna l grandfather: Diabetes mellitus Mother Oly Alive Mother: Alive a nd well Paternal Grandfather Patermary l grandfather: Asthma Sister Ashley Alive Sister: Alive a nd well Social History Tobacco Use Types Packs/Day Years Used Date Smoking Tobacco: Never Smokeless Tobacco: Never Tobacco Cessation:Counseling Given: Yes Alcohol Use Standard Drinks/Week Comments Never 0 (1 standard drink = 0.6 oz pur e alcohol) Hunger/Food Answer Date Recorded In the last 12 months, did y ou or your family ever eat less than you felt you should because there wasn't enough money for food? No 08/31/2021 Stable Housing Answer Date Recorded Are you worried that in the next 2 months you may not have stable housing? No 08/31/2021 Transportation Concerns Answer Date Rec orded In the last 12 months, have you or your family ever had to go without healthcare because you didn't have a way to get there? No 08/31/2021 Hazards in Home Answer Date Recorded Think about the place you li ve. Do you have problems with any of the following? Pests (mice or roaches), mold, no/not working smoke detectors, water leaks, no window guards. No 2021 Financing Utilities Answer Date Recorde d In the last 12 months, has t he electric, gas, oil, or water company threatened to shut off your services in your home? No 08/31/2021 Safety at Home Answer Date Recorded Are you or your family worried about feeling saf e in your home? No 08/31/2021 Outside Support Answer Date Recorded Do you feel that you need mo re support from other people or programs to help you care for yourself or your family? No 08/31/2021 Understanding Health Concerns Answer Da te Recorded Do you need help understandi ng your or your child's healthcare needs (diagnosis, medications, plan, etc.)? No 08/31/2021 Financing Health Concerns Answer Date R ecorded In the last 12 months, was t here a time when your child needed to see a doctor or get medications or supplies but could not because of cost? No 08/31/2021 Missing School or Work Answer Date Quintin rded Did you or your child miss s chool or work because of a health problem that could have been avoided? No 08/31/2021 Sex and Gender Information Value Date Recorded Sex Assigned at Not on file Legal Sex Male 5:00 PM EDT Gender Identity Male 01/22/2020 4:00 PM EDT Sexual Orientation Not on file Last Filed Vital Signs Vital Sign Reading Time Taken Comments Blood Pressure 116/60 03/30/2023 1:17 PM EDT Pulse 73 03/30/2023 1:17 PM EDT Temperature 36.6 ??C (97.9 ??F) 03/30/2023 1:17 PM ED T Respiratory Rate - - Oxygen Saturation 96% 10/12/2022 4:13 PM EDT Inhaled Oxygen Concentration - - Weight 75.4 kg (166 lb 3.2 oz) 03/30/2023 1:17 P M EDT Height 180.3 cm (5' 10.97 ) 08/31/2021 10:52 AM EDT Body Mass Index - - Plan of Treatment Health Maintenance Due Date Last Done Comments Men B Vaccine (1 of 2 - Standard) 2020 Influenza Vaccines (#1) 2024 09/01/19, 01/27/2020, 02/11/2019, Additional history exists COVID-19 Vaccine (3 - 2023-2 5 season) 2024 10/20/2020, 09/28/2020 DTaP,Tdap,and Td Vaccines (7 - Td or Tdap) 03/17/2026 03/17/2016, 01/24/2008, 07/10/2005, Additional history exists Hepatitis B Vaccines Completed 2004, 2004, 2004, Additional history exists HIB Vaccines Completed 04/14/2005, 08/02, 2004, Additional history exists Pneumococcal Vaccine Completed 04/14/2005, 2004, 2004, Additional history exists IPV Vaccines Completed 01/24/2008, 08/02, 2004, Additional history exists MMR Vaccines Completed 01/24/2008, 01/06/2005 Varicella Vaccines Completed 01/24/2008, 01/06/2005 Hepatitis A Vaccines Completed 03/17/2016, 03/27/20 14 HPV Vaccines Completed 08/02/2018, 05/18/2017 Meningococcal Vaccine Completed 05/19/2020, 016 Insurance [facility] NON PCC
--- OUTSIDE RECORDS SUMMARY | 2024-10-08 11:38 | XMS_ITS | Encounter Summary ---
Author Organization [facility] Address [address] [place] [address] Phone Care Team Providers Care Welding Tester Name Role Phone Unavailable Primary Care Provider Unavailabl e Encounter Details Date Type Department Care Team (Late st Contact Info) Description 11/28/2016 Documentation [facility] [place] [address] Family Medicine, Physician [facility] [place], [place] [phone] Social History Tobacco Use Types Packs/Day Years [...]
--- OUTSIDE RECORDS SUMMARY | 2024-10-08 11:38 | XMS_ITS | Encounter Summary ---
Author Organization [facility] Address [address] [place] [address] Phone Care Team Providers Care Radiology Physician Assistant Name Role Phone Unavailable Primary Care Provider Unavailabl e Encounter Details Date Type Department Care Team (Late st Contact Info) Description 01/18/2017 Conversion Encounter [facility] - [address] [address] Social History Tobacco Use Types Packs/Day Years [...]
--- OUTSIDE RECORDS SUMMARY | 2024-10-08 11:38 | XMS_ITS | Encounter Summary ---
Author Organization [facility] Address [address] [place] [address] Phone Care Team Providers Care Medical Attendant Name Role Phone Unavailable Primary Care Provider Unavailabl e Reason for Visit * Reason Onset Date Comments Med Refill 08/07/2022 Encounter Details Date Type Department Care Team (Late st Contact Info) Description 08/07/2022 Refill [facility] [place] [address] [place] [address] Riya Alfred MD [address] [place] [address] Anxiety Social History Tobacco Use Types Packs/Day [...] encounter Miscellaneous Notes * Telephone Encounter - Riya Alfred MD - 08/08/2022 5:40 PM EST Script sent. PPP * Telephone Encounter - Mckinley Weinstein LPN - 08/08/2022 2:43 PM EST Pt is requesting a refill on Celexa 10 mg. Last PE was 08/31/21 Transferred pt up front to schedule a PE. documented in this encounter Plan of Treatment Not on file documented as of this encounter Visit Diagnoses Diagnosis Anxiety Anxiety state, unspecified documented in this encounter
--- OUTSIDE RECORDS SUMMARY | 2024-10-08 11:38 | XMS_ITS | Encounter Summary ---
Author Organization [facility] Address [address] [place] [address] Phone Care Team Providers Care Typo Machine Operator Name Role Phone Unavailable Primary Care Provider Unavailabl e Reason for Visit * Reason Onset Date Comments Med Refill 06/28/2022 Encounter Details Date Type Department Care Team (Late st Contact Info) Description 06/28/2022 Refill [facility] [place] [address] [place] [address] Riya Alfred MD [address] [place] [address] Anxiety Social History Tobacco Use Types Packs/Day [...] Telephone Encounter - Riya Alfred MD - 06/28/2022 10:58 AM EST Script sent. PPP * Telephone Encounter - Rony Rodriguez LPN - 06/28/2022 10:30 AM EST Pt requesting refill of Citalopram 10mg via mychart. Last PE 08/31/21, last med check 03/27. documented in this encounter Plan of Treatment Not on file documented as of this encounter Visit Diagnoses Diagnosis Anxiety Anxiety state, unspecified documented in this encounter
--- OUTSIDE RECORDS SUMMARY | 2024-10-08 11:38 | XMS_ITS | Clinical Summary ---
Author Organization [employer] Address [address] [facility] 7[address] [place] [address] Care Team Providers Care Watch Inspector Final Movement Name Role Phone Unavailable Primary Care Provider Unavailabl e Social History Tobacco Use Types Packs/Day Years Used Date Smoking Tobacco: Never Assessed Sex and Gender Information Value Date Recorded Sex Assigned at Male 04/03/2022 10:35 AM EDT Legal Sex Male 10:35 AM EDT Gender Identity Male 04/03/2022 10:35 AM EDT Sexual Orientation Straight 04/03/2022 10 :35 AM EDT Plan of Treatment Health Maintenance Due Date Last Done Comments Chlamydia and Gonorrhea Screening 2004 Dental Oral Exam 2004 Dental Prophylaxis 2004 Dental X-Ray: Bitewings 2004 Dental X-Ray: Full Mouth 2004 Depression Screening 2004 HIV Screening 2004 SDOH Screening 2004 Alcohol/Substance Use Screening 2016 Tobacco Screening 2016 Family Planning (PISQ) 01/06/2019 Hepatitis C Screening 01/06/2022 Pneumococcal Vaccine: Pediatrics (0 to 5 Years) and At-Risk Patients (6 to 49) Years) (1 of 2 - PCV) 01/06/2023 04/14/2005, 2004, 2004, Additional history exists COVID-19 Vaccine (3 - 2023- season) 2024 10/20/2020, 09/28/2020 Influenza Vaccine (#1) 2024 , 01/27/2020, 02/11/2019, Additional history exists DTaP/Tdap/Td Vaccines (7 - Td or Tdap) 03/17/2026 03/17/2016, 01/24/2008, 07/10/2005, Additional history exists Zoster Vaccines (1 of 2) 01/06/2054 RSV Patients and Patients Aged 60 years or older (1 - 1-dose 75+ series) 01/06/2079 Hepatitis B Vaccines Completed 2004, 2004, 2004, Additional history exists HIB Vaccines Completed 04/14/2005, 08/02, 2004, Additional history exists IPV Vaccines Completed 01/24/2008, 08/02, 2004, Additional history exists Hepatitis A Vaccines Completed 03/17/2016, 03/27/20 14 HPV Vaccines Completed 08/02/2018, 05/18/2017 Meningococcal Vaccine Completed 05/19/2020, 016 RSV under 20 months Aged Out No longe r eligible based on patient's age to complete this topic Rotavirus Vaccines Aged Out No longer eligible based on patient's age to complete this topic Insurance [facility] MEDICAID STAND CHILD
== END 2024-10-08 11:05 | disposition home or self-care (01) ==
PROVIDERS: PCP Nurse Practitioner Family; Visit Provider Nurse Practitioner Family
DX: F41.8 Other specified anxiety disorders (principal); S42.024A Nondisplaced fracture of shaft of right clavicle, initial encounter for closed fracture

== ENCOUNTER → 2024-10-08 10:20 | Outpatient (BNVA) | payer OTHER, SELFPAY | PROVIDERS: PCP Family Medicine; Visit Provider Nurse Practitioner Family | DX: F41.8 Other specified anxiety disorders (principal); S42.024D Nondisplaced fracture of shaft of right clavicle, subsequent encounter for fracture with routine healing | CPT/HCPCS: 96127; 99212 ==

== ENCOUNTER 2025-04-03 08:21 | Outpatient (AMB) | payer OTHER, SELFPAY ==
--- OUTSIDE RECORDS SUMMARY | 2024-02-17 13:47 | XMS_ITS | Encounter Summary ---
Author Organization [facility] Address [address] [place] [phone] Phone Care Team Providers Care Pediatric Cardiologist Name Role Phone Heraclio Leblanc MD Primary Care Provider Encounter Details Date Type Department Care Team (Late st Contact Info) Description 02/17/2024 1:47 PM EDT Hospital Encounter [facility] [address] [place] [phone] Manda Calderon FNP [address] [place] [phone] [email or web address] Social History Tobacco Use Types Packs/Day [...] clinician's provided indication for this examination in [facility]: Cough; cough, sob, chest pain, fevers, body [...] clinician's provided indication for this examination in [facility]:Cough; cough, sob, chest pain, fevers, body aches for 2 weeks. hx asthma COMPARISON: None. FINDINGS: Devices/Tubes/Lines: None. Lungs: Normal. The lungs are clear. No focal consolidation or pulmonaryedema. Pleura: Normal. No pleural effusion or pneumothorax. Heart/Mediastinum: Normal heart and mediastinum. Bones/Soft Tissues: Normal. No significant skeletal abnormality. IMPRESSION: Normal chest. Manda Calderon PATIENT INTAKE COORDINATOR IMG XR CHEST Final Resul t documented in this encounter Visit Diagnoses Not on filedocumented in this encounter Additional Health Concerns Infection Onset Date Last Indicated Resolved Time CoV-Risk 02/17/2024 02/17/2024 02/28/2024 1:24 AM EDT documented as of this encounter Care Teams Pediatric Cardiologist Relationship Specialty Start Date End Date Heraclio Leblanc MD PCP - General Family Medicine 12/03/23 documented as of this encounter Additional Source Comments The information contained in this document represents components of the legal health record. It is not the complete legal health record.[facility]
--- NOTE | 2025-04-03 08:29 | A.OFFVIS_ITS ---
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 Patient states he was snow boarding and he fell directly to his right shoulder and then kept snowboarding. He states that he is feeling tender. Patient states that he was taking pain medication but stopped taking it back in November. He notices some pain with movement of his arm. Allergies No Known Allergies Allergy (Verified 04/03/25 08:37) HPI HPI TOOTH CLERK-Right Clavicle Fracture DOI-06/23/24: Details: Mr. Deleon is a 20 year old right hand dominant male who presents to the office today for evaluation of a right clavicle injury that he sustained on 06/23/24. Patient states he was snow boarding and he fell directly to his right shoulder. He continued to snowboard and did not seek any treatment at that time. He continues to have tenderness and soreness. He denies any ROM restriction. Pain presents with activity. [facility] Medical History (Updated 10/08/24 @ 07:31 [facility] Asthma Surgical History (Updated 11/26/23 @ 15:10 by Phuong Flowers CMA) No pertinent past surgical history Family History (Updated 11/26/23 @ 15:11 by Phuong Flowers CMA) Father Mental health disorder Social History Household Members: Family Both parents involved: Yes Caregiver staying overnight: No Housing: House Are you a primary client care representative to a significant other at home: No Do you presently have visiting nurse or other home services: No 75 years or older and lives alone: No Alcohol intake: never Patient Tobacco Use Status: Never used Tobacco Tobacco use type: Cigarette e-Cigarette/Vaping Use: Never Used Agree to transfusion: No service: No Current occupational status: employed Current occupation: works at [employer]. Cognitive needs: No Hearing needs: No Vision needs: No Review of Systems Const All systems reviewed & are unremarkable except as noted in HPI and below Physical Exam Const General: cooperative, healthy appearing and no acute distress Resp Effort & Inspection: normal respiratory effort and able to speak in complete sentences Extrem Other: Right shoulder: Full shoulder ROM in all planes. NVI. Psych Appearance: grossly normal Mental Status: mental status grossly normal Attitude: cooperative Assessment & Plan Assessment & Plan (1) Right clavicle fracture: Code(s): S42.001A - Fracture of unspecified part of right clavicle, initial encounter for closed fracture Category: Medical Qualifiers: Encounter type: initial encounter Clavicle location: shaft Fracture type: closed Fracture alignment: nondisplaced Qualified Code(s): S42.024A - Nondisplaced fracture of shaft of right clavicle, initial encounter for closed fracture Plan Mr. Deleon is a 20 year old right hand dominant male who presents to the office today for evaluation of a right clavicle injury that he sustained on 06/23/24. Patient states he was snow boarding and he fell directly to his right shoulder. He continued to snowboard and did not seek any treatment at that time. He continues to have tenderness and soreness. He denies any ROM restriction. Pain presents with activity. While in the office today, I discussed with the patient that there is no surgical treatment that is recommended at this time as this is a chronic fracture. I have recommended physical therapy at this time. Patient is amenable to attend. He will follow up PRN, sooner if needed. X-rays of the right clavicle which were obtained while in the office today and were reviewed by me, Cris Adorno PA-C, revealed healed midshaft clavicle fracture. Coding Level of Care Code New Pt Level 3 (26245) Diagnoses Closed nondisplaced fracture of shaft of right clavicle, initial encounter S42.024A Encounter type: initial encounter Clavicle location: shaft Fracture type: closed Fracture alignment: nondisplaced
--- OUTSIDE RECORDS SUMMARY | 2025-04-03 08:30 | XMS_ITS | Encounter Summary ---
Author Organization [facility] Address [address] [place] [address] Phone Care Team Providers Care Stem Assembler Name Role Phone Unavailable Primary Care Provider Unavailabl e Encounter Details Date Type Department Care Team (Late st Contact Info) Description 08/09/2016 Documentation [facility] [place] [address] Family Medicine, Physician [facility] [place], [place] 082511 Social History Tobacco Use Types Packs/Day Years [...]
--- OUTSIDE RECORDS SUMMARY | 2025-04-03 08:30 | XMS_ITS | Encounter Summary ---
Author Organization [facility] Address [address] [place] [address] Phone Care Team Providers Care Forestry Patrolman Name Role Phone Unavailable Primary Care Provider Unavailabl e Encounter Details Date Type Department Care Team (Late st Contact Info) Description 12/12/2011 Documentation [facility] [place] [address] Family Medicine, Physician [facility] [place], [place] 377231 Social History Tobacco Use Types Packs/Day Years [...]
--- OUTSIDE RECORDS SUMMARY | 2025-04-03 08:30 | XMS_ITS | Encounter Summary ---
Author Organization [facility] Address [address] [place] [address] Phone Care Team Providers Care Forge Tender Name Role Phone Unavailable Primary Care Provider Unavailabl e Encounter Details Date Type Department Care Team (Late st Contact Info) Description 05/29/2012 Documentation [facility] Family Medicine [facility] [place] [address] Family Medicine, Physician [facility] [place], [place] 896101 Social History Tobacco Use Types Packs/Day Years [...]
--- OUTSIDE RECORDS SUMMARY | 2025-04-03 08:30 | XMS_ITS | Encounter Summary ---
Author Organization [facility] Address [address] [place] [address] Phone Care Team Providers Care Public Safety Telecommunicator Name Role Phone Unavailable Primary Care Provider Unavailabl e Reason for Visit * Reason Onset Date Comments Med Refill 06/28/2022 Encounter Details Date Type Department Care Team (Late st Contact Info) Description 06/28/2022 Refill [facility] [place] [address] [place] [address] Riya Alfred MD [address] [place] [address] Anxiety Social History Tobacco Use Types Packs/Day [...]
--- OUTSIDE RECORDS SUMMARY | 2025-04-03 08:30 | XMS_ITS | Encounter Summary ---
Author Organization [facility] Address [address] [place] [address] Phone Care Team Providers Care Perfume And Toilet Water Maker Name Role Phone Unavailable Primary Care Provider Unavailabl e Encounter Details Date Type Department Care Team (Late st Contact Info) Description 11/28/2016 [address]ation [facility] [place] [address] Family Medicine, Physician [facility] [place] 284611 Social History Tobacco Use Types Packs/Day Years [...]
--- OUTSIDE RECORDS SUMMARY | 2025-04-03 08:30 | XMS_ITS | Encounter Summary ---
Author Organization [facility] Address [address] [place] [address] Phone Care Team Providers Care Workers Compensation Defense Attorney Name Role Phone Unavailable Primary Care Provider Unavailabl e Encounter Details Date Type Department Care Team (Late st Contact Info) Description 12/15/2011 Documentation [facility] [place] [address] Family Medicine, Physician [facility] [place], [place] 050571 Social History Tobacco Use Types Packs/Day Years [...]
--- OUTSIDE RECORDS SUMMARY | 2025-04-03 08:30 | XMS_ITS | Encounter Summary ---
Author Organization [facility] Address [address] [place] [address] Phone Care Team Providers Care Pyrometer Operator Name Role Phone Unavailable Primary Care Provider Unavailabl e Encounter Details Date Type Department Care Team (Late st Contact Info) Description 05/09/2011 Documentation [facility] [place] [address] Family Medicine, Physician [facility] [place], [place] 769481 Social History Tobacco Use Types Packs/Day Years [...]
--- OUTSIDE RECORDS SUMMARY | 2025-04-03 08:30 | XMS_ITS | Encounter Summary ---
Author Organization [facility] Address [address] [place] [address] Phone Care Team Providers Care Paper Testing Supervisor Name Role Phone Unavailable Primary Care Provider Unavailabl e Reason for Visit * Reason Onset Date Comments Med Refill 08/07/2022 Encounter Details Date Type Department Care Team (Late st Contact Info) Description 08/07/2022 Refill [facility] [place] [address] [place] [address] Riya Alfred MD [address] [place] [address] Anxiety Social History Tobacco Use Types Packs/Day [...]
--- OUTSIDE RECORDS SUMMARY | 2025-04-03 08:30 | XMS_ITS | Encounter Summary ---
Author Organization [facility] Address [address] [place] [address] Phone Care Team Providers Care Buttonhole Maker Hand Name Role Phone Unavailable Primary Care Provider Unavailabl e Encounter Details Date Type Department Care Team (Late st Contact Info) Description 11/06/2016 Documentation [facility] [place] [address] Family Medicine, Physician [facility] [place] 270641 Social History Tobacco Use Types Packs/Day Years [...]
--- OUTSIDE RECORDS SUMMARY | 2025-04-03 08:30 | XMS_ITS | Encounter Summary ---
Author Organization [facility] Address [address] [place] [address] Phone Care Team Providers Care Printer Machine Name Role Phone Unavailable Primary Care Provider Unavailabl e Encounter Details Date Type Department Care Team (Late st Contact Info) Description 11/28/2011 Documentation [facility] [place] [address] Family Medicine, Physician [facility] [place] 232731 Social History Tobacco Use Types Packs/Day Years [...]
--- OUTSIDE RECORDS SUMMARY | 2025-04-03 08:30 | XMS_ITS | Encounter Summary ---
Author Organization [facility] Address [address] [place] [address] Phone Care Team Providers Care Manager Clinical Services Name Role Phone Unavailable Primary Care Provider Unavailabl e Encounter Details Date Type Department Care Team (Late st Contact Info) Description 12/27/2015 Documentation [facility] [place] [address] Family Medicine, Physician [facility] [place], [place] 848441 Social History Tobacco Use Types Packs/Day Years [...]
--- OUTSIDE RECORDS SUMMARY | 2025-04-03 08:30 | XMS_ITS | Encounter Summary ---
Author Organization [facility] Address [address] [place] [address] Phone Care Team Providers Care Pipe Smoker Machine Operator Name Role Phone Unavailable Primary Care Provider Unavailabl e Reason for Visit * Reason Comments Med Refill Encounter Details Date Type Department Care Team (Late st Contact Info) Description 05/12/2021 Refill [facility] [place] [address] [place] [address] Riya Alfred MD [address] [place] [address] Anxiety Social History Tobacco Use Types Packs/Day [...]
--- OUTSIDE RECORDS SUMMARY | 2025-04-03 08:30 | XMS_ITS | Clinical Summary ---
Author Organization [facility] Address [address] [place] [address] Phone Care Team Providers Care Maintenance Supervisor Electrical Name Role Phone Heraclio Leblanc MD Primary Care Provider Allergies No known active allergies Medications albuterol 90 mcg/actuation inhaler Inhale 2 puffs into the lungs every 6 (six) hours as needed for wheezing. Active citalopram (CELEXA) 20 MG tablet Take 20 mg by mouth daily. Active albuterol 90 mcg/actuation inhaler Inhale 2 puffs into the lungs. 10/12/2022 Active Active Problems No known active problems Social History Tobacco Use Types Packs/Day Years Used Date Smoking Tobacco: Never Smokeless Tobacco: Never Tobacco Cessation:Counseling Given: Not Answered Education Answer Date Recorded Are you interested [...] on file Sexual Orientation Not on file Last Filed Vital Signs Vital Sign Reading Time Taken Comments Blood Pressure 118/75 02/17/2024 1:29 PM EDT Pulse 77 02/17/2024 1:29 PM EDT Temperature 36.7 C (98 F) 02/17/2024 1:29 PM EDT Respiratory Rate 16 02/17/2024 1:29 PM EDT Oxygen Saturation 97% 02/17/2024 1:29 PM EDT Inhaled Oxygen Concentration - - Weight 74.8 kg (165 lb) 02/17/2024 1:29 PM EDT Height 180.3 cm (5' 11 ) 02/17/2024 1:29 PM EDT Body Mass Index 23.01 02/17/2024 1:29 PM EDT Plan of Treatment Health Maintenance Due Date Last Done Comments DEPRESSION SCREENING 2016 COMBINED DTaP,Tdap,Td (2 - Td or Tdap) 04/14/2016 03/17/2016 HEPATITIS A VACCINES (2 of 2 - 2-dose series) 09/15/2016 03/17/2016 SMOKING Hx and SMOKELESS TOBACCO SCREENING 01/06/2017 MENINGOCOCCAL VACCINES (B) (1 of 2 - Standard) 2020 ADOLESCENT UNIVERSAL LIPID SCREENING 01/06/2021 HEPATITIS C SCREENING 01/06/2022 HIV ONE-TIME SCREENING (18-65 YEARS) 01/06/2022 INFLUENZA VACCINE (#1) 2025 2, 01/27/2020, 02/11/2019, Additional history exists COVID-19 VACCINE ( season) 2025 10/20/2020, 09/28/2020 Adult Td,Tdap Booster 03/17/2026 03/17/2016 MMR VACCINES Completed 01/24/2008, 01/06/2005 HPV VACCINES Completed 08/02/2018, 05/18/2017 MENINGOCOCCAL VACCINES (ACWY) Completed 05/19/2020, 03/17/2016 HIB VACCINES Aged Out No longer eligi ble based on patient's age to complete this topic PNEUMOCOCCAL VACCINES (0-49 years) Aged Out No longer eligible based on patient's age to complete this topic Medical Devices Not on file Insurance [facility] NON NSPG PCP [place] NON NSPG PCP [place] NON NSPG PCP [place] NON NSPG PCP [place] [employer] CONNE[employer] [facility] NON NSPG PCP [place] [employer] [employer] [facility] NON NSPG PCP [facility] [employer] Care Teams Maintenance Supervisor Electrical Relationship Specialty Start Date End Date Heraclio Leblanc MD PCP - General Family Medicine 12/03/23 Additional Source Comments The information contained in this document represents components of the legal health record. It is not the complete legal health record.[facility]
--- OUTSIDE RECORDS SUMMARY | 2025-04-03 08:30 | XMS_ITS | Encounter Summary ---
Author Organization [facility] Address [address] [place] [address] Phone Care Team Providers Care Mechanical Sound Technician Name Role Phone Unavailable Primary Care Provider Unavailabl e Encounter Details Date Type Department Care Team (Late st Contact Info) Description 06/07/2012 Documentation [facility] [place] [address] Family Medicine, Physician [facility] [place], [place] [phone] Social History Tobacco Use Types Packs/Day Years [...]
--- OUTSIDE RECORDS SUMMARY | 2025-04-03 08:30 | XMS_ITS | Encounter Summary ---
Author Organization [facility] Address [address] [place] [address] Phone Care Team Providers Care Brushing Machine Operator Name Role Phone Unavailable Primary Care Provider Unavailabl e Encounter Details Date Type Department Care Team (Late st Contact Info) Description 10/16/2009 Documentation [facility] [place] [address] Family Medicine, Physician [facility] [place], [place] 425371 Social History Tobacco Use Types Packs/Day Years [...]
--- OUTSIDE RECORDS SUMMARY | 2025-04-03 08:30 | XMS_ITS | Encounter Summary ---
Author Organization [facility] Address [address] [place] [address] Phone Care Team Providers Care Blister Pack Operator Name Role Phone Unavailable Primary Care Provider Unavailabl e Encounter Details Date Type Department Care Team (Late st Contact Info) Description 04/04/2012 Documentation [facility] [place] [address] Family Medicine, Physician [facility] [place] 389791 Social History Tobacco Use Types Packs/Day Years [...]
--- OUTSIDE RECORDS SUMMARY | 2025-04-03 08:30 | XMS_ITS | Encounter Summary ---
Author Organization [facility] Address [address] [place] [address] Phone Care Team Providers Care Alteration Tailor Name Role Phone Unavailable Primary Care Provider Unavailabl e Encounter Details Date Type Department Care Team (Late st Contact Info) Description 12/14/2011 Documentation [facility] [place] [address] Family Medicine, Physician [facility] [place], [place] 454431 Social History Tobacco Use Types Packs/Day Years [...]
--- OUTSIDE RECORDS SUMMARY | 2025-04-03 08:30 | XMS_ITS | Encounter Summary ---
Author Organization [facility] Address [address] [place] [address] Phone Care Team Providers Care Pretzel Twisting Machine Operator Name Role Phone Unavailable Primary Care Provider Unavailabl e Encounter Details Date Type Department Care Team (Late st Contact Info) Description 08/04/2011 [address] [facility] [place] [address] Family Medicine, Physician [facility] [place], [place] 755691 Social History Tobacco Use Types Packs/Day Years [...]
--- OUTSIDE RECORDS SUMMARY | 2025-04-03 08:30 | XMS_ITS | Clinical Summary ---
Author Organization [facility] Address [address] [place] [address] Care Team Providers Care Supervisor Cutting And Sewing Room Name Role Phone Unavailable Primary Care Provider [...] so, obtain the minor's consent prior to disclosure.[facility] Social History Tobacco Use Types Packs/Day Years Used Date Smoking Tobacco: Never Assessed Sex and Gender Information Value Date Recorded Sex Assigned at Not on file Legal Sex Male 2:11 PM EDT Gender Identity Not on file Sexual Orientation Not on file Plan of Treatment Not on file Insurance [facility]
--- OUTSIDE RECORDS SUMMARY | 2025-04-03 08:30 | XMS_ITS | Encounter Summary ---
Author Organization [facility] Address [address] [place] [address] Phone Care Team Providers Care Platform Loader Name Role Phone Unavailable Primary Care Provider Unavailabl e Encounter Details Date Type Department Care Team (Late st Contact Info) Description 08/09/2016 Documentation [facility] [place] [address] Family Medicine, Physician [facility] [place] [id number] Social History Tobacco Use Types Packs/Day Years [...]
--- OUTSIDE RECORDS SUMMARY | 2025-04-03 08:30 | XMS_ITS | Encounter Summary ---
Author Organization [facility] Address [address] [place] [address] Phone Care Team Providers Care Forming Roll Operator Name Role Phone Unavailable Primary Care Provider Unavailabl e Encounter Details Date Type Department Care Team (Late st Contact Info) Description 08/09/2016 Documentation [facility] [address] Family Medicine, Physician [facility] [place], [place] 507251 Social History Tobacco Use Types Packs/Day Years [...]
--- OUTSIDE RECORDS SUMMARY | 2025-04-03 08:30 | XMS_ITS | Encounter Summary ---
Author Organization [facility] Address [address] [place] [address] Phone Care Team Providers Care Mailroom Assistant Name Role Phone Unavailable Primary Care Provider Unavailabl e Encounter Details Date Type Department Care Team (Late st Contact Info) Description 09/30/2012 Documentation [facility] [place] [address] Family Medicine, Physician [facility] [place], [place] 840261 Social History Tobacco Use Types Packs/Day Years [...]
--- OUTSIDE RECORDS SUMMARY | 2025-04-03 08:30 | XMS_ITS | Encounter Summary ---
Author Organization [facility] Address [address] [place] [address] Phone Care Team Providers Care Forensic Investigator Name Role Phone Unavailable Primary Care Provider Unavailabl e Encounter Details Date Type Department Care Team (Late st Contact Info) Description 05/11/2015 Documentation [facility] Family Medicine [facility] [place] [address] Family Medicine, Physician [facility] [place], [place] [address]111 Social History Tobacco Use Types Packs/Day Years [...]
--- OUTSIDE RECORDS SUMMARY | 2025-04-03 08:30 | XMS_ITS | Encounter Summary ---
Author Organization [facility] Address [address] [place] [address] Phone Care Team Providers Care Planning And Analysis Manager Name Role Phone Unavailable Primary Care Provider Unavailabl e Encounter Details Date Type Department Care Team (Late st Contact Info) Description 01/18/2017 Conversion Encounter [facility] - [address] [address] Social History Tobacco Use Types Packs/Day Years [...]
--- OUTSIDE RECORDS SUMMARY | 2025-04-03 08:30 | XMS_ITS | Encounter Summary ---
Author Organization [facility] Address [address] [place] [address] Phone Care Team Providers Care Final Assembler Boat Name Role Phone Unavailable Primary Care Provider Unavailabl e Encounter Details Date Type Department Care Team (Late st Contact Info) Description 08/18/2016 Documentation [facility] Family Medicine On [facility] of [facility] [place] [address] Family Medicine, Physician On license of [facility] [place], [place] 0[address]251 Social History Tobacco Use Types Packs/Day Years [...]
--- OUTSIDE RECORDS SUMMARY | 2025-04-03 08:31 | XMS_ITS | Encounter Summary ---
Author Organization [employer] Address [address] [place] [address] Care Team Providers Care Salary And Wage Administrator Name Role Phone Unavailable Primary Care Provider Unavailabl e Encounter Details Date Type Department Care Team (Latest Contact Info) Description 03/29/2022 Abstract [facility] CONVERSION[facility] Dental, Provider, DDS Social History Tobacco [...]
--- OUTSIDE RECORDS SUMMARY | 2025-04-03 08:31 | XMS_ITS | Clinical Summary ---
Author Organization [facility] Address [address] [place] [address] Phone Care Team Providers Care Power Plant Electrician Name Role Phone Unavailable Primary Care Provider [...] compulsive disorder) 06/28/2018 Overview (08/12/2020): Seen by [facility], Dr. Olivares. Started on Sertraline [...] [address] Olivares at [facility] (telepsych). Increased to Concerta 27 mg [...] 73 03/30/2023 1:17 PM EDT Temperature 36.6 C (97.9 F) 03/30/2023 1:17 PM EDT Respiratory Rate - - Oxygen Saturation 96% [...] 2 - Standard) 2020 Influenza Vaccines (#1) 2025 09/01/19, 01/27/2020, 02/11/2019, Additional history exists COVID-19 Vaccine (3 - 2024-2 6 season) 2025 10/20/2020, 09/28/2020 DTaP,Tdap,and Td Vaccines (7 - [...]
--- OUTSIDE RECORDS SUMMARY | 2025-04-03 08:31 | XMS_ITS | Clinical Summary ---
Author Organization [employer] Address [address] [facility] [address] 7t [place] [address] Care Team Providers Care Statistics Teacher Name Role Phone Unavailable Primary Care Provider [...] 2004 HIV Screening 2004 SDOH Screening 2004 Disability Screening 2004 Alcohol/Substance Use Screening 2016 Tobacco Screening 2016 Family Planning (PISQ) 01/06/2019 Meningococcal B Vaccine (1 of 2 - Standard) 2020 Hepatitis C Screening 01/06/2022 Pneumococcal Vaccine: Pediatrics (0 to 5 Years) and At-Risk Patients (6 to 49) Years (1 of 2 - PCV) 01/06/2023 04/14/2005, 2004, 2004, Additional history exists COVID-19 Vaccine ( - season) 2025 10/20/2020, 09/28/2020 Influenza Vaccine (#1) 2025 , 01/27/2020, 02/11/2019, Additional history exists DTaP/Tdap/Td [...] patient's age to complete this topic Insurance [facility] [employer] STAND CHILD
== END 2025-04-03 09:04 | disposition home or self-care (01) ==
LOC: HO.HOS 08:21
PROVIDERS: PCP Nurse Practitioner Family; Visit Provider Physician Assistant
DX: S42.024A Nondisplaced fracture of shaft of right clavicle, initial encounter for closed fracture (principal)
CPT/HCPCS: 99203

== ENCOUNTER → 2025-04-03 08:23 | Outpatient (BNV) | payer OTHER, SELFPAY | PROVIDERS: Visit Provider Radiology Diagnostic Radiology | DX: M25.511 Pain in right shoulder (principal) | CPT/HCPCS: 73000 ==

== ENCOUNTER 2025-04-03 14:14 | Outpatient (REF) | payer OTHER, SELFPAY ==
--- OUTSIDE RECORDS SUMMARY | 2024-02-17 12:47 | XMS_ITS | Encounter Summary ---
Author Organization [facility] Address [address] [place] [phone] Phone Care Team Providers Care Map Drafter Name Role Phone Heraclio Leblanc MD Primary Care Provider Encounter Details Date Type Department Care Team (Late st Contact Info) Description 02/17/2024 1:47 PM EDT Hospital Encounter [facility] [address] [place] [phone] Manda Calderon FNP [address] [place] [phone] [email or web address] Social History Tobacco Use Types Packs/Day Years Used Date Smoking Tobacco: Never Smokeless Tobacco: Never Education Answer Date Recorded Are you interested in more education? Not on paty e 12/04/2023 Are you concerned about learning? Not on file 12/04/2023 No 12/04/2023 No 12/04/2023 Digital Access Answer Date Recorded No 12/04/2023 No 12/04/2023 Reliable internet access at home? Not on file 12/04/2023 Device with a working camera? Not on file Sex and Gender Information Value Date Recorded Sex Assigned at Not on file Legal Sex Male 3:22 PM EDT Gender Identity Not on file Sexual Orientation Not on file documented as of this encounter Plan of Treatment Not on file documented as of this encounter Procedures Procedure Name Priority Date/Time Associated Diagnosis Comments XR CHEST PA AND LATERAL 2 VIEWS Urgent/patient waiting 02/17/2024 1:51 PM EDT Upper respiratory infection, acute documented in this encounter Results * XR CHEST PA AND LATERAL 2 VIEWS (02/17/2024 1:51 PM EDT) Anatomical Region Laterality Modality Chest Computed Radiogr aphy 02/17/2024 2:37 PM EDT Impressions 02/17/2024 2:38 PM EDT Normal chest. Narrative 02/17/2024 2:38 PM EDT XR CHEST PA AND LATERAL 2 VIEWS Referring clinician's provided indication for this examination in [facility]: Cough; cough, sob, chest pain, fevers, body aches for 2 weeks. hx asthma COMPARISON: None. FINDINGS: Devices/Tubes/Lines: None. Lungs: Normal. The lungs are clear. No focal consolidation or pulmonary edema. Pleura: Normal. No pleural effusion or pneumothorax. Heart/Mediastinum: Normal heart and mediastinum. Bones/Soft Tissues: Normal. No significant skeletal abnormality. Procedure Note Austin Mares MD - 02/17/2024 XR CHEST PA AND LATERAL 2 VIEWS Referring clinician's provided indication for this examination in [facility]:Cough; cough, sob, chest pain, fevers, body aches for 2 weeks. hx asthma COMPARISON: None. FINDINGS: Devices/Tubes/Lines: None. Lungs: Normal. The lungs are clear. No focal consolidation or pulmonaryedema. Pleura: Normal. No pleural effusion or pneumothorax. Heart/Mediastinum: Normal heart and mediastinum. Bones/Soft Tissues: Normal. No significant skeletal abnormality. IMPRESSION: Normal chest. Manda Calderon [facility] IMG XR CHEST Final Resul t documented in this encounter Visit Diagnoses Not on filedocumented in this encounter Additional Health Concerns Infection Onset Date Last Indicated Resolved Time CoV-Risk 02/17/2024 02/17/2024 02/28/2024 1:24 AM EDT documented as of this encounter Care Teams Map Drafter Relationship Specialty Start Date End Date Heraclio Leblanc MD PCP - General Family Medicine 12/03/23 documented as of this encounter Additional Source Comments The information contained in this document represents components of the legal health record. It is not the complete legal health record.[facility]
--- NOTE | ~2025-04-03 | XR_ITS ---
EXAMINATION: XR CLAVICLE RIGHT HISTORY: M25.519 - Pain in unspecified shoulder COMPARISON: There are no prior studies available for comparison. FINDINGS: Two views of the right clavicle are submitted. Osseous mineralization is normal. There is a healed fracture of the mid to distal clavicle with a large amount of callus. No acute fracture is seen. The acromioclavicular joint space is preserved. The soft tissues are unremarkable. XR/XR clavicle RT IMPRESSION: Healed fracture of the mid to distal clavicle. Electronically signed by: Giancarlo Smith MD 04/03/2025 08:36 AM EDT
--- OUTSIDE RECORDS SUMMARY | 2025-04-05 14:17 | XMS_ITS | Encounter Summary ---
Author Organization [facility] Address [address] [place] [address] Phone Care Team Providers Care Business Continuity Management Director Name Role Phone Unavailable Primary Care Provider Unavailabl e Encounter Details Date Type Department Care Team (Late st Contact Info) Description 11/28/2011 Documentation [facility] [place] [address] Family Medicine, Physician [facility] [place], [place] 262961 Social History Tobacco Use Types Packs/Day Years [...]
--- OUTSIDE RECORDS SUMMARY | 2025-04-05 14:17 | XMS_ITS | Encounter Summary ---
Author Organization [facility] Address [address] [place] [address] Phone Care Team Providers Care Buck Presser Name Role Phone Unavailable Primary Care Provider Unavailabl e Encounter Details Date Type Department Care Team (Late st Contact Info) Description 08/04/2011 Documentation [facility] [place] [address] Family Medicine, Physician [facility] [place], [place] 9515[address] Social History Tobacco Use Types Packs/Day Years [...]
--- OUTSIDE RECORDS SUMMARY | 2025-04-05 14:17 | XMS_ITS | Encounter Summary ---
Author Organization [facility] Address [address] [place] [address] Phone Care Team Providers Care Product Craftsman Name Role Phone Unavailable Primary Care Provider Unavailabl e Encounter Details Date Type Department Care Team (Late st Contact Info) Description 12/12/2011 Documentation [facility] [place] [address] Family Medicine, Physician [facility] [place], [place] [address]6901 Social History Tobacco Use Types Packs/Day Years [...]
--- OUTSIDE RECORDS SUMMARY | 2025-04-05 14:17 | XMS_ITS | Encounter Summary ---
Author Organization [facility] Address [address] [place] [address] Phone Care Team Providers Care Credit Card Specialist Name Role Phone Unavailable Primary Care Provider Unavailabl e Encounter Details Date Type Department Care Team (Late st Contact Info) Description 12/15/2011 Documentation [facility] [place] [address] Family Medicine, Physician [facility] [place], [place] 218541 Social History Tobacco Use Types Packs/Day Years [...]
--- OUTSIDE RECORDS SUMMARY | 2025-04-05 14:17 | XMS_ITS | Encounter Summary ---
Author Organization [facility] Address [address] [place] [address] Phone Care Team Providers Care Financial Coordinator Name Role Phone Unavailable Primary Care Provider Unavailabl e Encounter Details Date Type Department Care Team (Late st Contact Info) Description 05/09/2011 Documentation [facility] [place] [address] Family Medicine, Physician [facility] [place], [place] 508981 Social History Tobacco Use Types Packs/Day Years [...]
--- OUTSIDE RECORDS SUMMARY | 2025-04-05 14:17 | XMS_ITS | Clinical Summary ---
Author Organization [facility] Address [address] [place] [address] Care Team Providers Care Store Hand Name Role Phone Unavailable Primary Care [...] so, obtain the minor's consent prior to disclosure.[facility] Social History Tobacco Use Types Packs/Day Years Used Date Smoking Tobacco: Never Assessed Sex and Gender Information Value Date Recorded Sex Assigned at Not on file Legal Sex Male 2:11 PM EDT Gender Identity Not on file Sexual Orientation Not on file Plan of Treatment Not on file Insurance [facility]
--- OUTSIDE RECORDS SUMMARY | 2025-04-05 14:17 | XMS_ITS | Encounter Summary ---
Author Organization [facility] Address [address] [place] [address] Phone Care Team Providers Care Risk Intern Name Role Phone Unavailable Primary Care Provider Unavailabl e Encounter Details Date Type Department Care Team (Late st Contact Info) Description 12/14/2011 Documentation [facility] [place] [address] Family Medicine, Physician [facility] [place] 389251 Social History Tobacco Use Types Packs/Day Years [...]
--- OUTSIDE RECORDS SUMMARY | 2025-04-05 14:18 | XMS_ITS | Encounter Summary ---
Author Organization [facility] Address [address] [place] [address] Phone Care Team Providers Care Route Inspector Name Role Phone Unavailable Primary Care Provider Unavailabl e Reason for Visit * Reason Onset Date Comments Med Refill 08/07/2022 Encounter Details Date Type Department Care Team (Late st Contact Info) Description 08/07/2022 Refill [facility] [place] [address] [place] [address] Riya Alfred MD [address] [place] [address] Anxiety Social History Tobacco Use Types Packs/Day [...]
--- OUTSIDE RECORDS SUMMARY | 2025-04-05 14:18 | XMS_ITS | Encounter Summary ---
Author Organization [facility] Address [address] [place] [address] Phone Care Team Providers Care Warning Analyst Name Role Phone Unavailable Primary Care Provider Unavailabl e Encounter Details Date Type Department Care Team (Late st Contact Info) Description 08/09/2016 Documentation [facility] [place] [address] Family Medicine, Physician [facility] [place], [place] [address]4631 Social History Tobacco Use Types Packs/Day Years [...]
--- OUTSIDE RECORDS SUMMARY | 2025-04-05 14:18 | XMS_ITS | Clinical Summary ---
Author Organization [employer] Address [address] [facility] 7t [place] [address] Care Team Providers Care Unit Manager Convenience Stores Name Role Phone Unavailable Primary Care Provider [...]
--- OUTSIDE RECORDS SUMMARY | 2025-04-05 14:18 | XMS_ITS | Encounter Summary ---
Author Organization [facility] Address [address] [place] [address] Phone Care Team Providers Care Paper Cup Handle Machine Operator Name Role Phone Unavailable Primary Care Provider Unavailabl e Encounter Details Date Type Department Care Team (Late st Contact Info) Description 10/16/2009 Documentation [facility] [place] [address] Family Medicine, Physician [facility] [place] 211181 Social History Tobacco Use Types Packs/Day Years [...]
--- OUTSIDE RECORDS SUMMARY | 2025-04-05 14:18 | XMS_ITS | Encounter Summary ---
Author Organization [facility] Address [address] [place] [address] Phone Care Team Providers Care University Intern Name Role Phone Unavailable Primary Care Provider Unavailabl e Encounter Details Date Type Department Care Team (Late st Contact Info) Description 08/09/2016 Documentation [facility] [place] [address] Family Medicine, Physician [facility] [place], [place] 654611 Social History Tobacco Use Types Packs/Day Years [...]
--- OUTSIDE RECORDS SUMMARY | 2025-04-05 14:18 | XMS_ITS | Encounter Summary ---
Author Organization [facility] Address [address] [place] [address] Phone Care Team Providers Care Wax Bleacher Name Role Phone Unavailable Primary Care Provider Unavailabl e Reason for Visit * Reason Onset Date Comments Med Refill 06/28/2022 Encounter Details Date Type Department Care Team (Late st Contact Info) Description 06/28/2022 Refill [facility] [place] [address] [place] [address] Riya Alfred MD [address] [place] [address] Anxiety Social History Tobacco Use Types Packs/Day [...]
--- OUTSIDE RECORDS SUMMARY | 2025-04-05 14:18 | XMS_ITS | Encounter Summary ---
Author Organization [facility] Address [address] [place] [address] Phone Care Team Providers Care News Reel Cameraman Name Role Phone Unavailable Primary Care Provider Unavailabl e Encounter Details Date Type Department Care Team (Late st Contact Info) Description 09/30/2012 Documentation [facility] [place] [address] Family Medicine, Physician [facility] [place] 364001 Social History Tobacco Use Types Packs/Day Years [...]
--- OUTSIDE RECORDS SUMMARY | 2025-04-05 14:18 | XMS_ITS | Encounter Summary ---
Author Organization [facility] Address [address] [place] [address] Phone Care Team Providers Care District Loss Prevention Manager Name Role Phone Unavailable Primary Care Provider Unavailabl e Encounter Details Date Type Department Care Team (Late st Contact Info) Description 04/04/2012 Documentation [facility] [place] [address] Family Medicine, Physician [facility] [place], [place] 088151 Social History Tobacco Use Types Packs/Day Years [...]
--- OUTSIDE RECORDS SUMMARY | 2025-04-05 14:18 | XMS_ITS | Encounter Summary ---
Author Organization [facility] Address [address] [place] [address] Phone Care Team Providers Care Clinical Resource Coordinator Name Role Phone Unavailable Primary Care Provider Unavailabl e Encounter Details Date Type Department Care Team (Late st Contact Info) Description 01/18/2017 Conversion Encounter [facility] - [address] [address] Social History Tobacco Use Types Packs/Day Years [...]
--- OUTSIDE RECORDS SUMMARY | 2025-04-05 14:18 | XMS_ITS | Clinical Summary ---
Author Organization [facility] Address [address] [place] [address] Phone Care Team Providers Care Manager Web Name Role Phone Heraclio Leblanc MD Primary [...] topic Medical Devices Not on file Insurance [facility] NON NSPG PCP [place] CONNECTORCARE WELLSENSE NON NSPG PCP SILVER CLARITY CONNECTORCARE WELLSENSE NON NSPG PCP SILVER CLARITY CONNECTORCARE WELLSENSE NON NSPG PCP SILVER CLARITY CONNECTORCARE [facility] NON NSPG PCP SILVER CLARITY CONNECTORCARE [facility] NON NSPG PCP JELM CLARITY CONNECTORCARE Care Teams Manager Web Relationship Specialty Start Date End Date Heraclio Leblanc MD PCP - General Family Medicine 12/03/23 Additional Source Comments The information contained in this document represents components of the legal health record. It is not the complete legal health record.[facility]
--- OUTSIDE RECORDS SUMMARY | 2025-04-05 14:18 | XMS_ITS | Encounter Summary ---
Author Organization [facility] Address [address] [place] [address] Phone Care Team Providers Care Machine Assembler Supervisor Name Role Phone Unavailable Primary Care Provider Unavailabl e Reason for Visit * Reason Comments Med Refill Encounter Details Date Type Department Care Team (Late st Contact Info) Description 05/12/2021 Refill [facility] [place] [address] [place] [address] Riya Alfred MD [address] [place] [address] Anxiety Social History Tobacco Use Types Packs/Day [...]
--- OUTSIDE RECORDS SUMMARY | 2025-04-05 14:18 | XMS_ITS | Encounter Summary ---
Author Organization [facility] Address [address] [place] [address] Phone Care Team Providers Care Paddle Dyeing Machine Operator Name Role Phone Unavailable Primary Care Provider Unavailabl e Encounter Details Date Type Department Care Team (Late st Contact Info) Description 11/06/2016 Documentation [facility] [address] Family Medicine, Physician [facility] [place], [place] 143541 Social History Tobacco Use Types Packs/Day Years [...]
--- OUTSIDE RECORDS SUMMARY | 2025-04-05 14:18 | XMS_ITS | Encounter Summary ---
Author Organization [facility] Address [address] [place] [address] Phone Care Team Providers Care Pastry Artist Name Role Phone Unavailable Primary Care Provider Unavailabl e Encounter Details Date Type Department Care Team (Late st Contact Info) Description 08/18/2016 Documentation EM Family Medicine [facility] [place] [address] Family Medicine, Physician [facility] [place], [place] 460301 Social History Tobacco Use Types Packs/Day Years [...]
--- OUTSIDE RECORDS SUMMARY | 2025-04-05 14:18 | XMS_ITS | Encounter Summary ---
Author Organization [facility] Address [address] [place] [address] Phone Care Team Providers Care Hardware Test Engineer Name Role Phone Unavailable Primary Care Provider Unavailabl e Encounter Details Date Type Department Care Team (Late st Contact Info) Description 05/11/2015 Documentation [facility] Family Medicine [facility] [place] [address] Family Medicine, Physician [facility] [place], [place] 362951 Social History Tobacco Use Types Packs/Day Years [...]
--- OUTSIDE RECORDS SUMMARY | 2025-04-05 14:18 | XMS_ITS | Encounter Summary ---
Author Organization [facility] Address [address] [place] [address] Phone Care Team Providers Care Food Order Delivery Runner Name Role Phone Unavailable Primary Care Provider Unavailabl e Encounter Details Date Type Department Care Team (Late st Contact Info) Description 11/28/2016 Documentation [facility] [place] [address] Family Medicine, Physician [facility] [place], [place] 776921 Social History Tobacco Use Types Packs/Day Years [...]
--- OUTSIDE RECORDS SUMMARY | 2025-04-05 14:18 | XMS_ITS | Encounter Summary ---
Author Organization [facility] Address [address] [place] [address] Phone Care Team Providers Care Production Line Technician Name Role Phone Unavailable Primary Care Provider Unavailabl e Encounter Details Date Type Department Care Team (Late st Contact Info) Description 08/09/2016 Documentation [facility] [place] [address] Family Medicine, Physician [facility] [place], [place] 817721 Social History Tobacco Use Types Packs/Day Years [...]
--- OUTSIDE RECORDS SUMMARY | 2025-04-05 14:18 | XMS_ITS | Clinical Summary ---
Author Organization [facility] Address [address] [place] [address] Phone Care Team Providers Care Cooling Pan Tender Name Role Phone Unavailable Primary Care [...] compulsive disorder) 06/28/2018 Overview (08/12/2020): Seen by [facility], Dr. Olivares. Started on Sertraline [...] [address] Olivares at [facility] (telepsych). Increased to Concerta 27 mg [...]
--- OUTSIDE RECORDS SUMMARY | 2025-04-05 14:18 | XMS_ITS | Encounter Summary ---
Author Organization [employer] Address [address] [place] [address] Care Team Providers Care Program Admin Name Role Phone Unavailable Primary Care Provider [...]
--- OUTSIDE RECORDS SUMMARY | 2025-04-05 14:18 | XMS_ITS | Encounter Summary ---
Author Organization [facility] Address [address] [place] [address] Phone Care Team Providers Care Tap Grinder Name Role Phone Unavailable Primary Care Provider Unavailabl e Encounter Details Date Type Department Care Team (Late st Contact Info) Description 06/07/2012 Documentation [facility] [place] [address] Family Medicine, Physician [facility] [place], [place] 338131 Social History Tobacco Use Types Packs/Day Years [...]
--- OUTSIDE RECORDS SUMMARY | 2025-04-05 14:18 | XMS_ITS | Encounter Summary ---
Author Organization [facility] Address [address] [place] [id number] Phone Care Team Providers Care Striper Spray Gun Name Role Phone Unavailable Primary Care Provider Unavailabl e Encounter Details Date Type Department Care Team (Late st Contact Info) Description 05/29/2012 Documentation [facility] Family Medicine [facility] [place] [address] Family Medicine, Physician [facility] [place], [place] [id number] Social History Tobacco Use Types Packs/Day Years [...]
--- OUTSIDE RECORDS SUMMARY | 2025-04-05 14:18 | XMS_ITS | Encounter Summary ---
Author Organization [facility] Address [address] [place] [id number] Phone Care Team Providers Care Lamination Builder Name Role Phone Unavailable Primary Care Provider Unavailabl e Encounter Details Date Type Department Care Team (Late st Contact Info) Description 12/27/2015 Documentation [facility] Family [facility] [place] [address] Family Medicine, Physician [facility] [place], [place] [id number] Social History Tobacco Use Types Packs/Day Years [...]
== END 2025-04-03 14:15 | disposition home or self-care (01) ==
LOC: HO.HOSX 14:14
PROVIDERS: Visit Provider Physician Assistant
DX: S42.024D Nondisplaced fracture of shaft of right clavicle, subsequent encounter for fracture with routine healing (principal); V00.311D Fall from snowboard, subsequent encounter
CPT/HCPCS: 73000; 99202